=== PATIENT | male | born 1945 | race Caucasian/White ===

== ENCOUNTER 2017-12-22 12:35 | Inpatient (IN) ==
[2017-12-22] MEDS ORDERED: 0.9 % Sodium Chloride 1,000 ML IVC ONE ×3 (12:57→16:10)
[2017-12-22 13:36] LABS: Basophils # 0.1 K/mcL (0.0-0.2); Basophils % 0.8 %; Eosinophils # 0.2 K/mcL (0.0-0.6); Eosinophils % 2.9 %; Hematocrit 43.8 % (37.5-50.1); Hemoglobin 14.8 g/dL (12.9-16.9); Immature Granulocytes % 0.9 % (0-4); Lymphocytes # 1.3 K/mcL (0.6-4.6); Lymphocytes % 19.5 %; Mean Corpuscular HGB Conc 33.8 g/dL (31.6-35.5); Mean Corpuscular Hemoglobin 29.7 pg (28.0-33.3); Mean Platelet Volume 12.5 fL (9.4-12.4); Monocytes # 0.5 K/mcL (0.0-1.3); Monocytes % 7.7 %; Neutrophils # 4.4 K/mcL (1.6-8.9); Platelet Count 139 K/mcL (140-400); Red Blood Count 4.98 M/mcL (4.19-5.50); Red Cell Distribution Width 13.9 % (11.5-14.5); Segmented Neutrophils % 68.2 %
[2017-12-22 13:44] LABS: INR 1.1; Prothrombin Time 12.7 Seconds (9.4-12.1)
[2017-12-22 13:57] LABS: BUN/Creatinine Ratio 15 (6-26); Blood Urea Nitrogen 51 mg/dL (8-23); Calcium 9.6 mg/dL (8.6-10.3); Carbon Dioxide 27 mEq/L (23-29); Chloride 94 mEq/L (98-107); Glucose 175 mg/dL (70-105); Osmolality,Calculated 294 (280-300); Potassium 4.1 mEq/L (3.5-5.1); Sodium 133 mEq/L (136-145); Troponin I < 0.03 ng/mL (< 0.04); eGFR For African Americans 22 (> 60); eGFR For Non-African Americans 18 (> 60)
[2017-12-22 13:59] LABS: Bilirubin,Urine Small (Negative); Blood,Urine Negative (Negative); Clarity,Urine Cloudy (Clear); Color,Urine Dark Yellow (Yellow); Glucose,Urine (UA) >=1000 mg/dL (Normal); Ketones,Urine Negative (Negative); Leukocyte Esterase,Urine Small (Negative); Nitrite,Urine Negative (Negative); PH,Urine 5.5 pH Units (5.0-8.0); Protein,Urine 30 mg/dL (Neg-Trace); Specific Gravity,Urine 1.024 (1.010-1.025); Urobilinogen,Urine Normal (Normal)
[2017-12-22 14:01] LABS: Bacteria,Urine None Seen per hpf (None-Few); Hyaline Casts,Urine None Seen per lpf (None-Few); Squamous Epithelial Cell,Urine Many per lpf (None-Few); WBC,Urine 15-30 per hpf (0-3)
[2017-12-22 14:19] LABS: RBC,Urine 0-3 per hpf (0-3)
--- NOTE | 2017-12-22 14:58 | Emergency Department Note ---
Disposition Clinical Impression: Acute kidney injury Foot ulcer Qualifiers: Laterality: left Non-pressure ulcer stage: unspecified non-pressure ulcer stage Qualified Code(s): L97.529 - Non-pressure chronic ulcer of other part of left foot with unspecified severity Hypotension Qualifiers: Hypotension type: unspecified hypotension type Qualified Code(s): I95.9 - Hypotension, unspecified Atrial fibrillation Qualifiers: Atrial fibrillation type: unspecified Qualified Code(s): I48.91 - Unspecified atrial fibrillation Disposition: Admitted As Inpatient Condition: Good Referrals: Ariel Munson DO [Primary Care Provider] - Forms: ED Satisfaction Letter General Adult HPI - General Chief complaint: ED Syncope Stated complaint: hypotension Time Seen by Provider: 12/22/17 12:56 Source: patient Limitations: no limitations Nursing Notes Reviewed: Yes Vital Signs Reviewed: Yes - History of Present Illness HPI Narrative: Patient presents today for evaluation of multiple syncopal episodes. Patient has had feelings of dizziness and lightheadedness over the last week has been worse over the last 3 days. He is very hard of hearing and difficult to get information from. He denies shortness of breath or chest pain. He states that he is being seen private grind operator for a foot wound that has been nonhealing in nature. The family is at bedside stating that they have noticed low blood pressure as low as 60 at home and that he has been unwilling to get out of bed secondary to dizziness. Patient is "stubborn" per family and they have not been able to get him to the hospital until today he had worsening symptoms. Denies fevers or chills. Pain Scale: 0 - Related Data Home Medications Medication Instructions Recorded Confirmed Aspirin 11/15/17 Atenolol 11/15/17 Cyclobenzaprine 11/15/17 Gabapentin 11/15/17 Glimepiride 11/15/17 Hydrocodon-Acetamin 7.5-325/15 11/15/17 Lisinopril-HCTZ 20-12.5 11/15/17 Lovastatin 11/15/17 11/15/17 Previous Rx's Medication Instructions Recorded Mupirocin [Bactroban Oint] 22 gm TP BID #1 tube 08/13/17 Albuterol Sulfate [Albuterol 2 puff IH Q4HR PRN #1 hfa.[email or web address].[email or web address] 08/15/17 Inhaler] Allergies Allergy/AdvReac Type Severity Reaction Status Date / Time Iodinated Contrast- Oral and Allergy Dizziness Verified 08/15/17 09:18 IV Dye Review of Systems: CONSTITUTIONAL: No weight loss, fever, chills, weakness or fatigue. HEENT: Eyes: No visual changes. Ears, Nose, Throat: No hearing loss, difficulty talking or unable to swallow. SKIN: No rash or itching. CARDIOVASCULAR: No chest pain, chest pressure or chest discomfort. No palpitations or edema. RESPIRATORY: No shortness of breath, cough or sputum. GASTROINTESTINAL: No anorexia, nausea, vomiting or diarrhea. No abdominal pain or blood. GENITOURINARY: No burning on urination or hematuria. NEUROLOGICAL: Dizziness and multiple episodes of near syncope. No headache, paralysis, ataxia, numbness or tingling in the extremities. No change in bowel or bladder control. MUSCULOSKELETAL: Chronic back pain Past Medical History - Past Medical History Medical history: Reports: cancer, diabetes, myocardial infarction, peripheral artery disease Psychiatric history: Reports: no psych history - Social History Smoking Status: Current every day smoker Smokeless Tobacco Status: No Alcohol use: Reports: none Drug use: Reports: none Physical Exam General: Hard of hearing but in no acute distress despite persistent low blood pressure W Head: Normocephalic Atraumatic Eyes: PERRL, EOMI ENT: Airway patent, no stridor Neck: supple, Chest: Lungs clear to auscultation bilateral Cardiac: Regular rate and rhythm, no murmurs, rubs or gallops Abdomen: soft, nontender, nondistended; no guarding, rebound, or tenderness to percussion Musculoskeletal: Calves symmetric, nontender, no palpable cord; no significant swelling Skin: Wounds to the left lower extremity including the dorsum as well as posterior aspect of the heel chronic and nonhealing Neuro: Alert and Oriented to person, place, and time; No focal deficit, - General Limitations: no limitations General appearance: alert, in no apparent distress Course Course Narrative: Patient was reevaluated multiple times throughout the hospital stay. The patient received 2 L of fluids and continued to remain hypotensive. Bedside echocardiogram was performed secondary to concern for persistent hypotension and chest x-ray concerning for CHF. Chest x-ray evaluated. No effusion. Patient clinically not having signs of congestive heart failure. The patient will continue to receive fluids. Central line discussed with patient and family. BMP as well as further labs will be obtained. We will discuss with hospitalist regards to further management. - Consultations Consultation #1: Case was discussed with the hospitalist. Recommend CPK to check for rhabdomyolysis as he has been nonmobile for 2 days secondary to low blood pressure. Also concern for infection as nonhealing food wound. Patient accepted for admission. Vital Signs Temperature 97.4 F L 12/22/17 12:40 Pulse Rate 84 12/22/17 12:40 Respiratory Rate 18 12/22/17 12:40 Blood Pressure 69/50 12/22/17 12:40 O2 Sat by Pulse Oximetry 96 12/22/17 12:40 Temperature 97.4 F L 12/22/17 13:06 Pulse Rate 78 12/22/17 15:56 Respiratory Rate 18 12/22/17 15:56 Blood Pressure 106/67 12/22/17 15:56 O2 Sat by Pulse Oximetry 100 12/22/17 15:56 Oxygen Delivery Oxygen Delivery Room Air Medical Decision Making - Medical Records Medical records reviewed: Yes I reviewed the patient's medical records. - Lab Data Lab results reviewed: Yes I reviewed the patient's lab results. Result diagrams: 12/22/17 12:44 12/22/17 12:44 Lab Results 12/22/17 12/22/17 12/22/17 Range/Units 12:44 12:44 12:56 WBC 6.5 (4.3-11.1) K/mcL RBC 4.98 (4.19-5.50) M/mcL Hgb 14.8 (12.9-16.9) g/dL Hct 43.8 (37.5-50.1) % MCV 88.0 (83.0-100.0) fL MCH 29.7 (28.0-33.3) pg MCHC 33.8 (31.6-35.5) g/dL RDW 13.9 (11.5-14.5) % Plt Count 139 L (140-400) K/mcL MPV 12.5 H (9.4-12.4) fL Immature Gran % 0.9 (0-4) % Seg Neutrophils % 68.2 % Lymphocytes % 19.5 % Monocytes % 7.7 % Eosinophils % 2.9 % Basophils % 0.8 % Neutrophils # 4.4 (1.6-8.9) K/mcL Lymphocytes # 1.3 (0.6-4.6) K/mcL Monocytes # 0.5 (0.0-1.3) K/mcL Eosinophils # 0.2 (0.0-0.6) K/mcL Basophils # 0.1 (0.0-0.2) K/mcL PT 12.7 H (9.4-12.1) Seconds INR 1.1 Sodium 133 L (136-145) mEq/L Potassium 4.1 (3.5-5.1) mEq/L Chloride 94 L (98-107) mEq/L Carbon Dioxide 27 (23-29) mEq/L BUN 51 H (8-23) mg/dL Creatinine 3.38 H (0.70-1.30) mg/dL Est GFR ( Amer) 22 L (> 60) Est GFR (Non-Af Amer) 18 L (> 60) BUN/Creatinine Ratio 15 (6-26) Glucose 175 H (70-105) mg/dL Calculated Osmolality 294 (280-300) Calcium 9.6 (8.6-10.3) mg/dL Troponin I < 0.03 (< 0.04) ng/mL B-Natriuretic Peptide (Less than 100) pg/mL Urine Color (Yellow) Urine Clarity (Clear) Urine pH (5.0-8.0) pH Units Ur Specific [place] (1.010-1.025) Urine Protein (Neg-Trace) mg/dL Urine Glucose (UA) (Normal) mg/dL Urine Ketones (Negative) mg/dL Urine Blood (Negative) Urine Nitrite (Negative) Urine Bilirubin (Negative) Urine Urobilinogen (Normal) mg/dL Ur Leukocyte Esterase (Negative) Urine Microscopic RBC (0-3) per hpf Urine Microscopic WBC (0-3) per hpf Ur Squamous Epith Cells (None-Few) per lpf Urine Bacteria (None-Few) per hpf Hyaline Casts (None-Few) per lpf Ur Culture Indicated? (NO) Blood Type Antibody Screen 12/22/17 12/22/17 12/22/17 Range/Units 13:02 13:50 15:18 WBC (4.3-11.1) K/mcL RBC (4.19-5.50) M/mcL Hgb (12.9-16.9) g/dL Hct (37.5-50.1) % MCV (83.0-100.0) fL MCH (28.0-33.3) pg MCHC (31.6-35.5) g/dL RDW (11.5-14.5) % Plt Count (140-400) K/mcL MPV (9.4-12.4) fL Immature Gran % (0-4) % Seg Neutrophils % % Lymphocytes % % Monocytes % % Eosinophils % % Basophils % % Neutrophils # (1.6-8.9) K/mcL Lymphocytes # (0.6-4.6) K/mcL Monocytes # (0.0-1.3) K/mcL Eosinophils # (0.0-0.6) K/mcL Basophils # (0.0-0.2) K/mcL PT (9.4-12.1) Seconds INR Sodium (136-145) mEq/L Potassium (3.5-5.1) mEq/L Chloride (98-107) mEq/L Carbon Dioxide (23-29) mEq/L BUN (8-23) mg/dL Creatinine (0.70-1.30) mg/dL Est GFR ( Amer) (> 60) Est GFR (Non-Af Amer) (> 60) BUN/Creatinine Ratio (6-26) Glucose (70-105) mg/dL Calculated Osmolality (280-300) Calcium (8.6-10.3) mg/dL Troponin I (< 0.04) ng/mL B-Natriuretic Peptide 82 (Less than 100) pg/mL Urine Color Dark Yellow (Yellow) Urine Clarity Cloudy A (Clear) Urine pH 5.5 (5.0-8.0) pH Units Ur Specific [place] 1.024 (1.010-1.025) Urine Protein 30 H (Neg-Trace) mg/dL Urine Glucose (UA) >=1000 H (Normal) mg/dL Urine Ketones Negative (Negative) mg/dL Urine Blood Negative (Negative) Urine Nitrite Negative (Negative) Urine Bilirubin Small H (Negative) Urine Urobilinogen Normal (Normal) mg/dL Ur Leukocyte Esterase Small H (Negative) Urine Microscopic RBC 0-3 (0-3) per hpf Urine Microscopic WBC 15-30 H (0-3) per hpf Ur Squamous Epith Cells Many H (None-Few) per lpf Urine Bacteria None Seen (None-Few) per hpf Hyaline Casts None Seen (None-Few) per lpf Ur Culture Indicated? NO. A (NO) Blood Type AB POSITIVE Antibody Screen NEGATIVE - Radiology Data Radiology results reviewed: Yes I reviewed the patient's radiology results. - EKG Data EKG #1 EKG attestation: Yes I reviewed and interpreted this EKG. EKG results narrative: EKG shows atrial fibrillation with ventricular rate of 80. QRS 102. QTC 403. No significant ST elevations or depressions.
[2017-12-22] MEDS ORDERED: Piperacillin/Tazobactam 3.375 GM in 0.9 % Sodium Chloride Mini Bag 100 ML IVPB ONE (16:09)
--- NOTE | 2017-12-22 19:54 | Internal Med History&Physical ---
Date of Encounter: 12/22/17 Time of Encounter: 19:50 Internal Medicine - H&P: HPI Chief complaint: Syncope Admitted From: Home History of present illness: Mr. Ayala is a 72 year old male with a past medical history of chronic kidney disease stage III, diabetes mellitus type 2, CAD, psoriasis, and peripheral artery disease who presented secondary to syncopal episodes. Patient reports lightheadedness for several weeks and decreased appetite. Family reports patient has not been drinking much fluids and in his systolic blood pressure has been on low 60s at home. He usually passes out shortly after standing per family. Patient reports taking lisinopril HCTZ as well as ibuprofen for non- healing diabetic foot ulcer. Family reports ulcer was the size of the silver dollar and now has decreased the size of a pencil eraser. Of note, EKG revealed new onset atrial fibrillation patient currently takes one baby aspirin daily. He denies associated fever, chills, chest pain, shortness of breath, abdominal pain, nausea, vomiting, diarrhea, constipation, dysuria, urinary frequency, urinary urgency, or recent illnesses. Past Med Surg Social Fam HX - Past Medical History Medical history: cancer, diabetes, myocardial infarction, peripheral artery disease Additional medical history: prostate 20 years ago Psychiatric history: no psych history - Past Surgical History Surgical History: other (Ears) Additional surgical history: 3 stents placed - Social History Smoking Status: Current every day smoker Packs per day: 0.5 Smokeless Tobacco Status: No Alcohol use: none Drug use: none Current living situation: Home - Family History Mother Hx Family Cardiac Disorders: Yes (CAD, CABG) Hx Family Endocrine Disorder: Yes (DM) Father Hx Family Cardiac Disorders: Yes ([place]) Internal Medicine - H&P: Meds Aspirin [Lo-Dose Aspirin EC] 81 mg PO DAILY 12/22/17 [History] Atenolol [Tenormin] 50 mg PO DAILY 12/22/17 [History] Gabapentin [Neurontin] 600 mg PO TID 12/22/17 [History] Glimepiride [Amaryl] 2 mg PO DAILY 12/22/17 [History] HYDROcodone/Acet 7.5/325 mg [[place] 7.5-325 mg] 1 tab PO TID PRN 12/22/17 [ History] Insulin Lispro Protamin/Lispro [Humalog Mix 75-25 Kwikpen] 70 unit SQ BID [History] Lisinopril-HCTZ 20-12.5 [Prinzide 20-12.5] 1 tab PO DAILY 12/22/17 [History] Lovastatin 40 mg PO DAILY 12/22/17 [History] Meloxicam [Mobic] 7.5 mg PO DAILY 12/22/17 [History] Pioglitazone HCl [Actos] 30 mg PO DAILY 12/22/17 [History] Terbinafine HCl 250 mg PO DAILY 12/22/17 [History] 3 Allergy/AdvReac Type Severity Reaction Status Date / Time Iodinated Contrast- Oral and Allergy Dizziness Verified 08/15/17 09:18 IV Dye All Systems PM: A 10-system review of systems was performed and is negative for pertinent findings except as documented above in the HPI. - Constitutional Constitutional: anorexia, fatigue, lethargy, malaise, weakness, no chills, no fever(s), no weight gain, no weight loss - EENT Eyes: no blurry vision, no diplopia Ears: decreased hearing (Chronic) - Cardiovascular Cardiovascular ROS IM: lightheadedness, syncope, no chest pain, no dyspnea on exertion, no palpitations - Respiratory Respiratory: no cough, no dyspnea on exertion, no wheezing, no chest congestion - Gastrointestinal Gastrointestinal: no abdominal pain, no constipation, no diarrhea, no loose stools, no nausea, no vomiting - Genitourinary Genitourinary ROS male: no dysuria, no urinary frequency, no urinary urgency - Musculoskeletal Musculoskeletal ROS IM: back pain (Chronic), no numbness, no tingling - Integumentary Integumentary IM: rash (Chronic psoriasis), skin ulcer - Neurological Neurological ROS: dizziness, frequent falls, numbness (Peripheral neuropathy), weakness, no tingling - Psychiatric Psychiatric: no anxiety, no depression - Endocrine Endocrine IM: fatigue, no flushing, no polydipsia, no polyphagia, no polyuria - Hematologic/Lymphatic Hematologic/Lymphatic: no easy bleeding, no easy bruising - Allergic/Immunologic Allergic/Immunologic: no wheezing - Constitutional Vitals: Temp Pulse Resp BP Pulse Ox 97.9 F 97 18 127/76 98 12/22/17 19:00 12/22/17 19:00 12/22/17 19:00 12/22/17 19:00 12/22/17 19:00 General appearance: Present: cooperative, A&O X 3, pleasant, no acute distress, answers questions appropriately - Head Head exam: Present: atraumatic, normocephalic - Eye Eye exam: Present: EOMI, PERRL, conjuntiva pink, sclera anicteric Pupils: Present: PERRL - ENT ENT exam: Present: mucous membranes dry, normal oropharynx - Neck Neck exam general surgery: Present: supple, trachea midline. Absent: lymphadenopathy - Respiratory Respiratory exam: Present: CTAB. Absent: accessory muscle use, rales, rhonchi, wheezes - Cardiovascular Cardiovascular exam: Present: irregular rhythm, +S1, +S2. Absent: diastolic murmur, gallop, rubs, systolic murmur - GI/Abdominal GI/Abdominal exam: Present: normal bowel sounds, soft, no peritoneal signs. Absent: distended, guarding, tenderness - Extremities Exam Extremities exam: Present: warm, radial pulses palpable and symmetrical. Absent : calf tenderness, cyanotic, pedal edema - Back Exam Back exam: Present: normal inspection. Absent: paraspinal tenderness, tenderness - Neurological Exam Neurological exam: Present: CN II-XII intact, oriented X3, no focal deficits. Absent: pronater drift, facial droop, speech deficit - Psychiatric Psychiatric exam: Present: normal affect, normal mood - Skin Skin exam: Present: dry (Increased skin turgor), normal color, rash (Diffuse psoriasis), warm. Absent: intact (Half centimeter deep ulcer left heel with minimal purulent drainage, no surrounding erythema or proximal streaking) Internal Med - H&P Results - Labs CBC & Chem 7: 12/22/17 12:44 12/22/17 12:44 - Pulse Oximetry Interpretation Digit-Finger O2 Sat by Pulse Oximetry: 98 (On room air) - EKG Data -: EKG Interpreted by Myself (Atrial fibrillation, rate 80) - Impressions ITS Impressions Chest X-Ray 12/22/17 12:57 IMPRESSION: Findings suggest congestive heart failure D/ / Benson Montilla MD / Benson Montilla MD Interpreting Provider: Benson Montilla MD - Assessment and plan (1) Acute kidney injury Current Visit: Yes Status: Acute Assessment and plan: Prerenal RITA on CKD stage 3 in the setting of sepsis, ANGUS inhibitor, and diuretic use Hold home ANGUS inhibitor and HCTZ Patient received 4 L normal saline in the ED Continue gentle hydration Strict I's and O's Repeat CXR in a.m. to eval for pulmonary edema Consider nephrology consult if renal function is not improve (2) Sepsis Current Visit: Yes Status: Acute Assessment and plan: Patient met SIRS criteria with tachycardia heart rate 97, and respiratory rate 22, and left heel ulcer as likely source of infection Patient given 4 L IVF sepsis bolus and ED Blood cultures pending Left foot ulcer culture pending Chest x-ray findings suggest congestive heart failure, repeat chest x-ray in AM due to significant amount of IV fluids Lactic acid pending Continue empiric Zosyn and Vanc Descalating antibiotics based culture results Qualifiers: Sepsis type: sepsis due to unspecified organism Qualified Code(s): A41.9 - Sepsis, unspecified organism (3) Heel ulcer due to DM Current Visit: Yes Status: Chronic Assessment and plan: Patient with diabetes and peripheral vascular disease GASTON pending Wound cultures pending Continue Santyl ointment and wound care Patient follows up podiatry Podiatry consulted Qualifiers: Diabetes mellitus type: type 2 Laterality: left Non-pressure ulcer stage : with fat layer exposed Qualified Code(s): E11.621 - Type 2 diabetes mellitus with foot ulcer; L97.422 - 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 layer exposed (4) Syncope Current Visit: Yes Status: Acute Assessment and plan: Likely vasovagal syncope in the setting of dehydration Carotid ultrasound pending Echo pending Cardiology consulted Qualifiers: Syncope type: vasovagal syncope Qualified Code(s): R55 - Syncope and collapse (5) Diabetes mellitus with peripheral vascular disease Current Visit: Yes Status: Chronic Assessment and plan: Last A1c level 10.8 on 07/29/17 Continue basal and SSI Continue Accu-Cheks ACHS ADA diet Diabetic education (6) CKD (chronic kidney disease), stage III Current Visit: Yes Status: Chronic Assessment and plan: CKD stage III Consumer Safety Inspector is Dr. Jacobsen Avoid nephrotoxins (7) Atrial fibrillation Current Visit: Yes Status: Acute Assessment and plan: New-onset atrial fibrillation CHADS-VASc Score 4 HAS-BLED Score 4 Patient is currently on aspirin 81 mg daily Cardiology consulted secondary syncope and new onset A. fib, patient recommendations regarding need for anticoagulation Qualifiers: Atrial fibrillation type: persistent Qualified Code(s): I48.1 - Persistent atrial fibrillation (8) CAD (coronary artery disease) Current Visit: No Status: Chronic Assessment and plan: Patient with known history of CAD Trend serial troponins Continue home aspirin Hold beta law in the setting of hypotension Qualifiers: Coronary Disease-Associated Artery/Lesion type: unspecified vessel or lesion type [place] vs. transplanted heart: [place] heart Associated angina: without angina Qualified Code(s): I25.10 - Atherosclerotic heart disease of [place] coronary artery without angina pectoris (9) HLD (hyperlipidemia) Current Visit: No Status: Chronic Assessment and plan: Continue home meds Qualifiers: Hyperlipidemia type: unspecified Qualified Code(s): E78.5 - Hyperlipidemia , unspecified (10) Peripheral vascular disease Current Visit: Yes Status: Chronic Assessment and plan: Patient with chronic peripheral vascular disease right lower extremity worse than left lower extremity Patient has been evaluated by vascular surgery in the past Repeat GASTON pending (11) Tobacco dependence Current Visit: No Status: Chronic Assessment and plan: Tobacco cessation discussed in the setting of peripheral vascular disease and heel ulcer (12) Chronic back pain Current Visit: No Status: Chronic Assessment and plan: Continue home meds Monitor for signs of opiate withdrawal Qualifiers: Back pain location: low back pain Back pain laterality: bilateral Sciatica presence: without sciatica Qualified Code(s): M54.5 - Low back pain; G89.29 - Other chronic pain (13) Hard of hearing Current Visit: Yes Status: Acute Assessment and plan: Continue monitoring Qualifiers: Hearing loss type: unspecified Laterality: unspecified laterality Qualified Code(s): H91.90 - Unspecified hearing loss, unspecified ear (14) Psoriasis Current Visit: No Status: Chronic Assessment and plan: Continue monitoring (15) DVT prophylaxis Current Visit: Yes Status: Acute Assessment and plan: Heparin subcutaneous TID - Time Spent With Patient Total time spent is greater than 50% in coordination of care (as documented) at patient's floor/unit and/or counseling patient: Sepsis Reassessment Note - Evaluation Sepsis Screen: No Definite Risk Current Stage of Sepsis: sepsis Possible Source of Sepsis: skin/soft tissue - Focused Exam Date of Encounter: 12/22/17 Time of Encounter: 21:10 Vital Signs: Vital Signs Temp Pulse Resp BP Pulse Ox 12/22/17 20:00 86 18 109/86 86 12/22/17 19:30 87 12/22/17 19:00 97.9 F 97 18 127/76 98 12/22/17 17:36 90 18 106/61 100 12/22/17 17:20 18 118/79 Respiratory Exam: Present: CTA bilaterally Cardiovascular Exam: Present: irregulary irregular Capillary Refill: > 2 seconds Peripheral Pulse Strength: 2+ slightly diminished Peripheral Pulse Location: Radial Skin Exam: pallor - Reassessment Comments Comments: poor skin turgor
[2017-12-22] MEDS ORDERED: Naloxone 0.4 MG/ML INJ IVP PRN (20:20)
[2017-12-22] MEDS ORDERED: Acetaminophen 325 MG TABLET PO PRN (20:20)
[2017-12-22] MEDS ORDERED: *HR* HYDROcodone/Acet 5/325 mg TABLET PO PRN (20:20)
[2017-12-22] MEDS ORDERED: 0.9 % Sodium Chloride 1,000 ML IVC SCH (20:30)
[2017-12-22] MEDS ORDERED: *HR* Dextrose 50 % in Water (Syg) 50 ML SYRINGE IVP PRN (20:33)
[2017-12-22] MEDS ORDERED: Dextrose Gel 15 GM/37.5 ML TUBE PO PRN ×2 (20:33)
[2017-12-22] MEDS ORDERED: D5% in Water 1,000 ML IVC PRN (20:33)
[2017-12-22] MEDS ORDERED: Insulin DETEMIR 100 UNIT/ML X5UNITS SQ SCH (21:00)
[2017-12-22] MEDS ORDERED: Insulin LISPRO 300 UNITS/3 ML VIAL SQ SCH (21:00)
[2017-12-22 21:35] LABS: Albumin 3.2 g/dL (3.5-5.7); Albumin/Globulin Ratio 1.1 (1.1-2.2); Bilirubin,Direct 0.9 mg/dL (0.0-0.2); Bilirubin,Indirect 0.5 mg/dL (0.0-1.2); Bilirubin,Total 1.4 mg/dL (0.3-1.0); Globulin 2.9 g/dL (2.4-3.5); Magnesium 1.9 mg/dL (1.6-2.6); Phosphorous 2.9 mg/dL (2.7-4.5); Total Protein 6.1 g/dL (6.4-8.9); Troponin I < 0.03 ng/mL (< 0.04)
[2017-12-22] MEDS ORDERED: *HR* Heparin 5,000 UNIT/ML VIAL SQ SCH (22:00)
[2017-12-22 22:09] LABS: Estimated Average Glucose 255 mg/dl; Hemoglobin A1C 10.5 %
[2017-12-22 22:22] LABS: Creatine Kinase 73 Units/L (30-223)
[2017-12-23] MEDS ORDERED: Piperacillin/Tazobactam 3.375 GM in 0.9 % Sodium Chloride Mini Bag 100 ML IVPB SCH
[2017-12-23 04:10] LABS: Mean Corpuscular Volume 88.5 fL (83.0-100.0); Mean Platelet Volume 11.9 fL (9.4-12.4); Monocytes % 8.1 %
[2017-12-23 04:12] LABS: Eosinophils # 0.2 K/mcL (0.0-0.6); Eosinophils % 4.9 %; Hematocrit 38.3 % (37.5-50.1); Immature Platelets 8.9 % (1.1-6.1); Lymphocytes # 1.1 K/mcL (0.6-4.6); Lymphocytes % 28.6 %; Mean Corpuscular HGB Conc 33.9 g/dL (31.6-35.5); Monocytes # 0.3 K/mcL (0.0-1.3); Red Blood Count 4.33 M/mcL (4.19-5.50); Red Cell Distribution Width 14.1 % (11.5-14.5); Segmented Neutrophils % 56.4 %
[2017-12-23 04:29] LABS: Albumin 3.1 g/dL (3.5-5.7); Bilirubin,Total 1.2 mg/dL (0.3-1.0); Calcium 8.3 mg/dL (8.6-10.3); Potassium 3.5 mEq/L (3.5-5.1); Total Protein 6.1 g/dL (6.4-8.9)
[2017-12-23] MEDS ORDERED: 0.9 % Sodium Chloride 250 ML IVC ONE ×2 (04:32→06:35)
[2017-12-23 04:52] LABS: Neutrophils # 2.1 K/mcL (1.6-8.9); Platelet Count 88 K/mcL (140-400)
[2017-12-23] MEDS ORDERED: *HR* HYDROcodone/Acet 5/325 mg TABLET PO PRN (06:35)
[2017-12-23] MEDS ORDERED: Naloxone 0.4 MG/ML INJ IVP PRN (06:35)
[2017-12-23] MEDS ORDERED: *HR* Dextrose 50 % in Water (Syg) 50 ML SYRINGE IVP PRN (06:35)
[2017-12-23] MEDS ORDERED: D5% in Water 1,000 ML IVC PRN (06:35)
[2017-12-23] MEDS ORDERED: Acetaminophen 325 MG TABLET PO PRN (06:35)
[2017-12-23] MEDS ORDERED: Dextrose Gel 15 GM/37.5 ML TUBE PO PRN ×2 (06:35)
[2017-12-23] MEDS ORDERED: 0.9 % Sodium Chloride 1,000 ML IVC SCH (06:35)
[2017-12-23] MEDS ORDERED: 0.9 % Sodium Chloride 1,000 ML ONE (06:44)
[2017-12-23] MEDS ORDERED: Insulin LISPRO 300 UNITS/3 ML VIAL SQ SCH (07:30)
[2017-12-23] MEDS: Insulin LISPRO 300 UNITS/3 ML VIAL SQ SCH ×4 (07:56→19:50)
[2017-12-23] MEDS: Piperacillin/Tazobactam 3.375 GM in 0.9 % Sodium Chloride Mini Bag 100 ML IVPB SCH ×2 (08:11→16:58)
[2017-12-23] MEDS: Aspirin Enteric Coated 81 MG Tablet PO SCH (08:11)
[2017-12-23] MEDS ORDERED: Aspirin Enteric Coated 81 MG Tablet PO SCH (09:00)
--- NOTE | 2017-12-23 10:31 | Cardiology Consult Note ---
Addendum entered and electronically signed by Kaiden Castelan CNP 12/23/17 14:12: PLT 88k this AM. On admission was 139k and has previously been near normal > 100. Repeat CBC. If platelets continue to downtrend, will recommend hematology evaluation for thrombocytopenia prior to starting anticoagulation. Resumed DVT prophylaxis that was originally ordered by primary team--Heparin 5000U SQ TID. Continue to monitor. Original Note: <Kaiden Castelan - Last Filed: 12/23/17 10:29> Date of Encounter: 12/23/17 Time of Encounter: 10:29 Assessment and Plan (1) Atrial fibrillation Current Visit: Yes Status: Acute Presumable new onset, rate controlled. 12 hr tele AVG HR 90. Was on Atenolol 50mg daily at home. No AV lauren blockers were started on admission due to hypotension. BP now improved. Start low dose Toprol XL 25mg daily. Hx of CAD and PCI, unclear when. No recent ischemic evaluation. Troponins negative x 3. Denies chest pain. Can consider stress test as outpt. Mag 1.9, K 3.5. Check TSH. TTE to evaluate structure and function. [id number] 3 (Age, DM, CAD). High CVA risk. Will recommend chronic AC--NOAC vs Coumadin, but currently complicated by communication issues--hearing aid battery and pt unable to carry on a conversation due to hearing loss. Qualifiers: Atrial fibrillation type: unspecified Qualified Code(s): I48.91 - Unspecified atrial fibrillation (2) Syncope Current Visit: Yes Status: Acute Syncope correlates with orthostatic hypotension and dehydration--per family most episodes were when going to a standing position. BP reportedly as low as 60s systolic. RITA secondary to dehydration and admits to lack of fluid intake. New onset A-Fib. Check TTE. Qualifiers: Syncope type: vasovagal syncope Qualified Code(s): R55 - Syncope and collapse (3) CAD (coronary artery disease) Current Visit: Yes Status: Chronic Reported hx of CAD and PCI, unclear when. No recent ischemic evaluation in our system. Pt denies chest pain. Troponins negative x 3. Continue ASA, Statin, start low dose BB. Qualifiers: Coronary Disease-Associated Artery/Lesion type: unspecified vessel or lesion type [place] vs. transplanted heart: [place] heart Associated angina: without angina Qualified Code(s): I25.10 - Atherosclerotic heart disease of [place] coronary artery without angina pectoris Discussion w patient/family: The assessment and plan as outlined above was discussed with the patient and/or family members who expressed understanding and agreement. All questions were answered. Thank you for involving us in the care of your patient. Please call with any questions. I will discuss all the above with Dr. Cary and make changes as necessary. History of Present Illness Consult date: 12/23/17 Requesting physician: Dallas Benson Consult reason: A-Fib, new onset Chief complaint: syncope History of present illness: Mr. Ayala is a 72 year old male a past medical history of chronic kidney disease stage III, diabetes mellitus type 2, CAD s/p PCI, psoriasis, and peripheral artery disease who presented secondary to syncopal episodes. Pt's hearing aid battery , communication very difficult at bedside. Most information obtained from H&P. Per H&P, patient reported lightheadedness for several weeks and decreased appetite. Family reported patient has not been drinking much fluids and in his systolic blood pressure has been on low 60s at home. He usually passes out shortly after standing per family. EKG revealed presumably new onset A-Fib in ED, HR 80. Cardiology consulted for further recs. He denies chest pain. Troponins negative x 3. RITA--creatinine 3.38 on admission , 2.09 today. Initial CXR suggested CHF, repeat CXR negative. No recent CV testing in records. Past Med Surg Social Fam HX - Past Medical History Medical history: cancer, coronary artery disease, diabetes, myocardial infarction, peripheral artery disease Additional medical history: prostate 20 years ago Psychiatric history: no psych history - Past Surgical History Surgical History: angioplasty/stent, other (Ears) Additional surgical history: 3 stents placed - Social History Smoking Status: Current every day smoker Packs per day: 0.5 Smokeless Tobacco Status: No Alcohol use: none Drug use: none - Family History Mother Hx Family Cardiac Disorders: Yes (CAD, CABG) Hx Family Endocrine Disorder: Yes (DM) Father Hx Family Cardiac Disorders: Yes ([place]) Medications and Allergies Aspirin [Lo-Dose Aspirin EC] 81 mg PO DAILY 12/22/17 [History] Atenolol [Tenormin] 50 mg PO DAILY 12/22/17 [History] Gabapentin [Neurontin] 600 mg PO TID 12/22/17 [History] Glimepiride [Amaryl] 2 mg PO DAILY 12/22/17 [History] HYDROcodone/Acet 7.5/325 mg [[place] 7.5-325 mg] 1 tab PO TID PRN 12/22/17 [ History] Insulin Lispro Protamin/Lispro [Humalog Mix 75-25 Kwikpen] 70 unit SQ BID [History] Lisinopril-HCTZ 20-12.5 [Prinzide 20-12.5] 1 tab PO DAILY 12/22/17 [History] Lovastatin 40 mg PO DAILY 12/22/17 [History] Meloxicam [Mobic] 7.5 mg PO DAILY 12/22/17 [History] Pioglitazone HCl [Actos] 30 mg PO DAILY 12/22/17 [History] Terbinafine HCl 250 mg PO DAILY 12/22/17 [History] 3 Allergy/AdvReac Type Severity Reaction Status Date / Time Iodinated Contrast- Oral and Allergy Dizziness Verified 08/15/17 09:18 IV Dye All Systems Review: The remainder of the systems were reviewed and are negative - Cardiovascular Cardiovascular: as per HPI, syncope Physical Examination Vital Signs, Last 4 Hours Temp Pulse Resp BP Pulse Ox 12/23/17 08:27 98 12/23/17 07:26 98.1 F 97 12 117/83 98 Vital Signs Temp Pulse Resp BP Pulse Ox 12/23/17 08:27 98 12/23/17 07:26 98.1 F 97 12 117/83 98 12/23/17 04:00 91 16 114/63 98 12/23/17 03:00 95 14 95/66 98 12/23/17 02:00 91 16 134/79 97 12/23/17 01:00 84 16 122/87 97 12/23/17 00:43 97.8 F 12/23/17 00:00 86 18 124/95 95 12/22/17 23:00 85 18 99/64 95 12/22/17 22:00 87 18 117/90 93 12/22/17 21:00 87 18 115/89 93 12/22/17 20:00 86 18 109/86 86 12/22/17 19:30 87 12/22/17 19:00 97.9 F 97 18 127/76 98 12/22/17 17:36 90 18 106/61 100 12/22/17 17:20 18 118/79 12/22/17 16:37 96 18 115/81 100 12/22/17 15:56 78 18 106/67 100 12/22/17 15:07 84 18 78/54 100 12/22/17 14:37 86 18 81/56 100 12/22/17 13:06 97.4 F L 84 18 69/50 96 12/22/17 12:40 97.4 F L 84 18 69/50 96 Intake and Output 12/22/17 12/23/17 12/23/17 23:59 07:59 15:59 Intake Total 1100 / 1100 0 / 0 Output Total 800 / 800 500 / 500 0 / 0 Balance 300 / 300 -500 / -500 0 / 0 Intake: IV Fluids 1100 / 1100 0.9 % Sodium Chloride 1,000 ML 1000 / 1000 @ 999 mls/hr IVC .Q1H1M ONE Rx# :[id number] Zosyn 3.375 GM In 0.9 % Sodium 100 / 100 Chloride (Mini-Bag +) 100 ML @ 25 mls/hr IVPB ONCE ONE Rx#: [id number] Oral 0 / 0 Output: Urine 800 / 800 500 / 500 0 / 0 Other: Weight 106.1 kg Blood Glucose* 195 88 Patient Weight 12/23/17 23:59 Weight 106.1 kg General: Conversant, No Apparent Distress HEENT: Atraumatic, Normocephaly, Mucus Membranes Moist Neck: No JVD, Normal carotid pulses Cardiac: Other (irregularly irregular rhythm) Lungs: Normal Breath Sounds, No Wheeze, Rales, Rhonchi Neuro: Alert and responsive, No focal deficits noted Abdomen: Soft, Non-Tender Skin: Other (LLE wound) Musculoskeletal: No Chest Wall Tenderness Extremities: No Clubbing, No Cyanosis, No Edema Results 12/23/17 03:24 12/23/17 03:24 Lab Results 12/22/17 12/22/17 12/23/17 21:01 21:01 03:24 WBC 3.8 L Hgb 13.0 D Hct 38.3 Plt Count 88 L Sodium Potassium Chloride Carbon Dioxide BUN Creatinine Glucose Calcium Magnesium 1.9 Total Bilirubin 1.4 H AST 141 H ALT 270 H Alkaline Phosphatase 145 H Troponin I < 0.03 12/23/17 12/23/17 03:24 03:24 WBC Hgb Hct Plt Count Sodium 135 L Potassium 3.5 Chloride 105 Carbon Dioxide 24 BUN 39 H Creatinine 2.09 H Glucose 83 Calcium 8.3 L Magnesium Total Bilirubin 1.2 H AST 123 H ALT 246 H Alkaline Phosphatase 143 H Troponin I < 0.03 Short CBC 12/23/17 12/22/17 Range/Units 03:24 12:44 WBC 3.8 L 6.5 (4.3-11.1) K/mcL Hgb 13.0 D 14.8 (12.9-16.9) g/dL Hct 38.3 43.8 (37.5-50.1) % Plt Count 88 L 139 L (140-400) K/mcL Neutrophils # 2.1 4.4 (1.6-8.9) K/mcL BMP 12/23/17 12/22/17 Range/Units 03:24 12:44 Sodium 135 L 133 L (136-145) mEq/L Potassium 3.5 4.1 (3.5-5.1) mEq/L Chloride 105 94 L (98-107) mEq/L Carbon Dioxide 24 27 (23-29) mEq/L BUN 39 H 51 H (8-23) mg/dL Creatinine 2.09 H 3.38 H (0.70-1.30) mg/dL Glucose 83 175 H (70-105) mg/dL Calcium 8.3 L 9.6 (8.6-10.3) mg/dL Cardiac Enzymes 12/23/17 12/22/17 12/22/17 Range/Units 03:24 21:01 12:44 Troponin I < 0.03 < 0.03 < 0.03 (< 0.04) ng/mL Liver Function 12/23/17 12/22/17 Range/Units 03:24 21:01 Total Bilirubin 1.2 H 1.4 H (0.3-1.0) mg/dL Direct Bilirubin 0.9 H (0.0-0.2) mg/dL AST 123 H 141 H (13-39) Units/L ALT 246 H 270 H (7-52) Units/L Alkaline Phosphatase 143 H 145 H (34-104) Units/L Albumin 3.1 L 3.2 L (3.5-5.7) g/dL Urine 12/22/17 Range/Units 13:50 Urine Color Dark Yellow (Yellow) Urine Clarity Cloudy A (Clear) Urine pH 5.5 (5.0-8.0) pH Units Ur Specific [place] 1.024 (1.010-1.025) Urine Protein 30 H (Neg-Trace) mg/dL Urine Glucose (UA) >=1000 H (Normal) mg/dL Impressions Chest X-Ray 12/22/17 12:57 IMPRESSION: Findings suggest congestive heart failure D/ / Benson Montilla MD / Benson Montilla MD Interpreting Provider: Benson Montilla MD Chest X-Ray 12/23/17 04:00 IMPRESSION: No acute disease. D/ / Noah Tan MD / Noah Tan MD Interpreting Provider: Noah Tan MD Active Medications Acetaminophen (Tylenol) 650 mg PO Q6HR PRN PRN Reason: Mild Pain/Fever Stop: 06/23/18 20:21 Hydrocodone Bitart/Acetaminophen ([place] 5-325 Mg) 1 tab PO Q6HR PRN PRN Reason: Moderate Pain Stop: 06/23/18 20:21 Aspirin (Aspirin Ec) 81 mg PO DAILY [facility] Stop: 06/24/18 09:01 Last Admin: 12/23/17 08:11 Dose: 81 mg Atorvastatin Calcium (Lipitor) 10 mg PO DAILY [facility] Stop: 06/23/18 20:46 Last Admin: 12/23/17 08:13 Dose: 10 mg Collagenase (Santyl) 1 appl TP DAILY [facility] PRN Reason: Protocol Stop: 06/23/18 20:31 Last Admin: 12/23/17 08:14 Dose: 1 appl Dextrose/Water (Dextrose 50% (Syg)) 25 ml IVP AD PRN PRN Reason: Hypoglycemia Stop: 06/23/18 20:34 Glucagon (Glucagen) 1 mg IM ONCE PRN PRN Reason: Hypoglycemia Stop: 06/23/18 20:34 Glucose (Gluctose) 15 gm PO ONCE PRN PRN Reason: Hypoglycemia Stop: 06/23/18 20:34 Glucose (Gluctose) 30 gm PO ONCE PRN PRN Reason: Hypoglycemia Stop: 06/23/18 20:34 Heparin Sodium (Porcine) (Heparin) 5,000 unit SQ Q8HCO [facility] Stop: 06/23/18 22:01 Dextrose (Dextrose 5%) 1,000 mls @ 100 mls/hr IVC .Q10H PRN PRN Reason: HYPOGLYCEMIA Stop: 06/23/18 20:34 Piperacillin Sod/Tazobactam (Sod 3.375 gm/ Sodium Chloride) 100 mls @ 25 mls/ hr IVPB Q8HR [facility] Stop: 06/24/18 00:01 Last Admin: 12/23/17 08:11 Dose: 25 mls/hr Insulin Detemir (Levemir) 15 unit SQ HS [facility] Stop: 06/23/18 21:01 Insulin Human Lispro (Humalog) 0 units SQ HS [facility] PRN Reason: Protocol Stop: 06/23/18 21:01 Insulin Human Lispro (Humalog) 0 units SQ TIDAC [facility] PRN Reason: Protocol Stop: 06/24/18 07:31 Last Admin: 12/23/17 07:56 Dose: Not Given Naloxone HCl (Narcan) 0.4 mg IVP Q2MIN PRN PRN Reason: SEE COMMENTS Stop: 06/23/18 20:21 Vancomycin HCl (Vancocin) 0 each IVPB RPHPROT PRN PRN Reason: PULSE DOSE Stop: 06/24/18 01:05 - Imaging and Cardiology Chest Xray: report reviewed - EKG Interpretation EKG results cardiology: personally reviewed (A-Fib with PVCs, HR 80), other (12 hr tele AVG HR 90, A-Fib.) Consult Discharge Plan - Plan Referrals: Ariel Munson, [Primary Care Provider] - <Frannie Cary - Last Filed: 12/24/17 14:28> Date of Encounter: 12/24/17 - Attending Attestation I have personally performed a face to face evaluation on this patient. I have reviewed and agree with the care plan. History and Exam by me shows: 72-year-old male presented with volume overload/congestive heart failure with shortness of breath. Patient drinks excessive amounts of fluids. Currently euvolemic on exam doing better with newly diagnosed atrial fibrillation. Did not appreciate his initial presentation with hypervolemia this was obtained from records. He has had recurrent falls in the past possibly making him high risk for future falls on anticoagulation. He does qualify for antibiotic laced reduce his risk of stroke with new onset atrial fibrillation. PTOT evaluation for risk of fall. The patient high risk for fall would not recommend for anticoagulations and continue antiplatelet therapy with the patient excepting higher risk for stroke. If patient is low risk for fall he would likely benefit from Coumadin due to his fluctuating renal function. With his history of thrombocyte cytopenia and platelets around thousand I do recommend a follow-up CBC in 3-5 days. Patient's platelets during his inpatient stay have not trended downwards and have been stable. Patient does have a history of PCI in the past. Would recommend outpatient stress test and follow-up with cardiology. Cardiac enzymes negative during his hospital stay the patient did not complain of chest pain Assessment and Plan Discussion w patient/family: The assessment and plan as outlined above was discussed with the patient and/or family members who expressed understanding and agreement. All questions were answered. Thank you for involving us in the care of your patient. Please call with any questions. History of Present Illness History of present illness: Mr. Ayala is a 72 year old male All Systems Review: The remainder of the systems were reviewed and are negative Physical Examination Vital Signs, Last 4 Hours Temp Pulse Resp BP Pulse Ox 12/24/17 12:58 97.9 F 98 16 148/93 97 Results 12/24/17 09:54 12/24/17 09:54 Lab Results 12/23/17 12/23/17 12/24/17 14:36 14:36 05:59 WBC 3.7 L Hgb 12.9 Hct 38.8 Plt Count 102 L INR 1.1 APTT 36.6 H Sodium Potassium Chloride Carbon Dioxide BUN Creatinine Glucose Calcium TSH 1.095 12/24/17 12/24/17 09:54 09:54 WBC 4.1 L Hgb 12.7 L Hct 37.4 L Plt Count 100 L INR APTT Sodium 136 Potassium 4.0 Chloride 100 Carbon Dioxide 27 BUN 27 H Creatinine 1.42 H Glucose 261 H Calcium 9.0 TSH
[2017-12-23] MEDS ORDERED: *HR* Heparin 5,000 UNIT/ML VIAL IVP PRN ×2 (13:41)
[2017-12-23] MEDS ORDERED: *HR* Heparin 5,000 UNIT/ML VIAL IVP ONE (13:41)
[2017-12-23] MEDS ORDERED: Heparin 25,000 UNIT/500 ML D5W 25,000 UNIT/500 ML BAG IVC SCH (13:45)
[2017-12-23] MEDS ORDERED: *HR* Heparin 5,000 UNIT/ML VIAL SQ SCH (14:00)
[2017-12-23 14:59] LABS: Basophils % 0.5 %; Eosinophils # 0.1 K/mcL (0.0-0.6); Eosinophils % 3.5 %; Hematocrit 38.8 % (37.5-50.1); Hemoglobin 12.9 g/dL (12.9-16.9); Immature Granulocytes % 1.1 % (0-4); Lymphocytes # 0.8 K/mcL (0.6-4.6); Lymphocytes % 21.6 %; Mean Corpuscular HGB Conc 33.2 g/dL (31.6-35.5); Mean Corpuscular Hemoglobin 29.3 pg (28.0-33.3); Mean Corpuscular Volume 88.2 fL (83.0-100.0); Mean Platelet Volume 11.8 fL (9.4-12.4); Monocytes # 0.3 K/mcL (0.0-1.3); Neutrophils # 2.5 K/mcL (1.6-8.9); Platelet Count 102 K/mcL (140-400); Red Cell Distribution Width 14.3 % (11.5-14.5); Segmented Neutrophils % 66.3 %
[2017-12-23 15:09] LABS: INR 1.1; Prothrombin Time 11.9 Seconds (9.4-12.1)
[2017-12-23] MEDS: Metoprolol XL (24 HR) Succ 25 MG TAB.ER.24H PO SCH (15:11)
[2017-12-23 15:12] LABS: Activated Partial Thrombo Time 36.6 Seconds (26.0-36.0)
--- NOTE | 2017-12-23 17:23 | Podiatry Consult Note ---
Date of Encounter: 12/23/17 Time of Encounter: 17:00 Assessment and Plan (1) Foot ulcer Current visit: Yes Status: Acute Ulceration to the posterior medial plantar aspect left calcaneus Pablo grade 2. Mixed etiology with vascular disease. WBC: 3.7 No evidence of bacterial infection. Plan: Continue wound care as ordered with Santyl ointment BID with 4x4 dry sterile gauze, kerlix and tape. Keep left heel off loaded. Follow up in wound care with Dr. Jay one week after discharge from the hospital. Recommend a follow up with Vascular, patient was scheduled to have an angiogram of BLE in October of [address] Snyder but was postponed until patient was evaluated by Nephrology. Qualifiers: Laterality: left Non-pressure ulcer stage: unspecified non-pressure ulcer stage Qualified Code(s): L97.529 - Non-pressure chronic ulcer of other part of left foot with unspecified severity (2) CKD (chronic kidney disease), stage III Current visit: Yes Status: Chronic (3) Diabetes mellitus with peripheral vascular disease Current visit: Yes Status: Chronic (4) Peripheral vascular disease Current visit: Yes Status: Chronic Patient was last seen by Dr. Snyder in October of 2017, ABIs from 10/04/17 showed RABI 0.68, LABI 1.08. Patient was scheduled for an angiogram with Dr. Snyder in October of 2017 but was postponed until evaluated by Nephrology. Recommend a follow up with Vascular. History of Present Illness HPI: Mr. Ayala is a 72 year old male admitted to [facility] for syncope. Patient has a medical history significant for chronic kidney disease stage III, diabetes mellitus type 2, CAD, psoriasis, and peripheral artery disease. Podiatry was consulted for an ulcer to the left heel. Patient is a patient of Dr. Jay'bart in the wound care center. Patient was last seen a month ago and had a bedside debridement. Patient was last seen by Dr. Snyder in October of 2017, ABIs from 10/04 showed RABI 0.68, LABI 1.08. Patient was scheduled for an angiogram with Dr. Snyder in October of 2017 but was postponed until evaluated by Nephrology. Patient denies any pain in his feet. Past Med Surg Social Fam HX - Past Medical History Medical history: cancer, coronary artery disease, diabetes, myocardial infarction, peripheral artery disease Additional medical history: prostate 20 years ago Psychiatric history: no psych history - Past Surgical History Surgical History: angioplasty/stent, other (Ears) Additional surgical history: 3 stents placed - Social History Smoking Status: Current every day smoker Packs per day: 0.5 Smokeless Tobacco Status: No Alcohol use: none Drug use: none - Family History Mother Hx Family Cardiac Disorders: Yes (CAD, CABG) Hx Family Endocrine Disorder: Yes (DM) Father Hx Family Cardiac Disorders: Yes ([place]) Medications and Allergies Aspirin [Lo-Dose Aspirin EC] 81 mg PO DAILY 12/22/17 [History] Atenolol [Tenormin] 50 mg PO DAILY 12/22/17 [History] Gabapentin [Neurontin] 600 mg PO TID 12/22/17 [History] Glimepiride [Amaryl] 2 mg PO DAILY 12/22/17 [History] HYDROcodone/Acet 7.5/325 mg [[place] 7.5-325 mg] 1 tab PO TID PRN 12/22/17 [ History] Insulin Lispro Protamin/Lispro [Humalog Mix 75-25 Kwikpen] 70 unit SQ BID [History] Lisinopril-HCTZ 20-12.5 [Prinzide 20-12.5] 1 tab PO DAILY 12/22/17 [History] Lovastatin 40 mg PO DAILY 12/22/17 [History] Meloxicam [Mobic] 7.5 mg PO DAILY 12/22/17 [History] Pioglitazone HCl [Actos] 30 mg PO DAILY 12/22/17 [History] Terbinafine HCl 250 mg PO DAILY 12/22/17 [History] 3 Allergy/AdvReac Type Severity Reaction Status Date / Time Iodinated Contrast- Oral and Allergy Dizziness Verified 08/15/17 09:18 IV Dye All Systems Reviewed: Denies pain, denies fever, denies chills Physical Exam - Constitutional Vitals: Temp Pulse Resp BP Pulse Ox 97.8 F 87 14 102/65 97 12/23/17 17:03 12/23/17 17:03 12/23/17 17:03 12/23/17 17:03 12/23/17 17:03 Exam: General appearance: alert awake oriented X 3. Calm and pleasant, no acute distress.. Vascular: Unable to palpate pedal pulses. No evidence of cyanosis, pallor or rubor, Edema graded at 1+/4, Skin Temperature cool to warm, No calf pain with manual compression. capillary refill time is immediate to digits. Neurologic: Sensation intact with light touch to foot. . Wound: Pablo grade 2 ulceration to the posterior medial plantar aspect left calcaneus measuring 0.7 cm in length x 0.5 cm in width x 0.7 cm in depth, no probe to bone, no fluctuance, no periwound erythema, no pus, no odor, no streaking, no cellulitis, no evidence of bacterial infection. Integument: dry red scaly lesions scattered to the dorsum of both feet. Results - Labs Result Diagrams: 12/23/17 14:36 12/23/17 03:24 Labs: Abnormal lab results WBC 3.7 K/mcL (4.3-11.1) L 12/23/17 14:36 Plt Count 102 K/mcL (140-400) L 12/23/17 14:36 Immature Plt Fraction 8.9 % (1.1-6.1) H 12/23/17 03:24 APTT 36.6 Seconds (26.0-36.0) H 12/23/17 14:36 Sodium 135 mEq/L (136-145) L 12/23/17 03:24 BUN 39 mg/dL (8-23) H 12/23/17 03:24 Creatinine 2.09 mg/dL (0.70-1.30) H 12/23/17 03:24 Est GFR ( Amer) 38 (> 60) L 12/23/17 03:24 Est GFR (Non-Af Amer) 31 (> 60) L 12/23/17 03:24 POC Glucose 195 mg/dL (70-99) H 12/22/17 21:29 Hemoglobin A1c 10.5 % (-5.6) H 12/22/17 21:01 Calcium 8.3 mg/dL (8.6-10.3) L 12/23/17 03:24 Total Bilirubin 1.2 mg/dL (0.3-1.0) H 12/23/17 03:24 Direct Bilirubin 0.9 mg/dL (0.0-0.2) H 07/08/18 21:01 AST 123 Units/L (13-39) H 12/23/17 03:24 ALT 246 Units/L (7-52) H 12/23/17 03:24 Alkaline Phosphatase 143 Units/L (34-104) H 12/23/17 03:24 Serum Total Protein 6.1 g/dL (6.4-8.9) L 12/23/17 03:24 Albumin 3.1 g/dL (3.5-5.7) L 12/23/17 03:24 Albumin/Globulin Ratio 1.0 (1.1-2.2) L 12/23/17 03:24 Urine Clarity Cloudy (Clear) A 12/22/17 13:50 Urine Protein 30 mg/dL (Neg-Trace) H 12/22/17 13:50 Urine Glucose (UA) >=1000 mg/dL (Normal) H 12/22/17 13:50 Urine Bilirubin Small (Negative) H 12/22/17 13:50 Ur Leukocyte Esterase Small (Negative) H 12/22/17 13:50 Urine Microscopic WBC 15-30 per hpf (0-3) H 12/22/17 13:50 Ur Squamous Epith Cells Many per lpf (None-Few) H 12/22/17 13:50 Ur Culture Indicated? NO. (NO) A 12/22/17 13:50 H & H 12/23/17 12/23/17 Range/Units 03:24 14:36 Hgb 13.0 D 12.9 (12.9-16.9) g/dL Hct 38.3 38.8 (37.5-50.1) % All other labs normal. Consult Discharge Plan - Plan Referrals: Ariel Munson, DO [Primary Care Provider] -
--- NOTE | 2017-12-23 18:47 | Internal Med Progress Note ---
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 layer exposed (2) Sepsis Current Visit: Yes Status: Acute Assessment and plan: Resolved; continue empiric Zosyn and Vanc Descalating antibiotics based culture results Qualifiers: Sepsis type: sepsis due to unspecified organism Qualified Code(s): A41.9 - Sepsis, unspecified organism (3) CKD (chronic kidney disease), stage III Current Visit: Yes Status: Chronic Assessment and plan: Patient with acute on chronic renal failure which is improving with IV fluids Continue to monitor (4) Atrial fibrillation Current Visit: Yes Status: Acute Assessment and plan: New-onset atrial fibrillation CHADS-VASc Score 4 HAS-BLED Score 4 Patient is currently on aspirin 81 mg daily Cardiology consulted secondary syncope and new onset A. fib, patient recommendations regarding need for anticoagulation Qualifiers: Atrial fibrillation type: unspecified Qualified Code(s): I48.91 - Unspecified atrial fibrillation (5) Diabetes mellitus with peripheral vascular disease Current Visit: Yes Status: Chronic Assessment and plan: Last A1c level 10.8 on 07/29/17 Continue basal and SSI (6) HLD (hyperlipidemia) Current Visit: No Status: Chronic Assessment and plan: Continue statin Qualifiers: Hyperlipidemia type: unspecified Qualified Code(s): E78.5 - Hyperlipidemia , unspecified (7) Syncope Current Visit: Yes Status: Acute Assessment and plan: Likely vasovagal syncope in the setting of dehydration Carotid ultrasound showed nonstenotic plaque bilaterally and echocardiogram pending Cardiology consulted and appreciate recommendations Qualifiers: Syncope type: vasovagal syncope Qualified Code(s): R55 - Syncope and collapse (8) CAD (coronary artery disease) Current Visit: Yes Status: Chronic Assessment and plan: Stable; continue home aspirin, statin and start a low-dose beta law per cardiology recommendations H Qualifiers: Coronary Disease-Associated Artery/Lesion type: unspecified vessel or lesion type [place] vs. transplanted heart: [place] heart Associated angina: without angina Qualified Code(s): I25.10 - Atherosclerotic heart disease of [place] coronary artery without angina pectoris (9) Peripheral vascular disease Current Visit: Yes Status: Chronic Assessment and plan: Patient with chronic peripheral vascular disease right lower extremity worse than left lower extremity Repeat GASTON pending (10) DVT prophylaxis Current Visit: Yes Status: Acute Assessment and plan: Heparin subcutaneous - Time Spent With Patient Total time spent is greater than 50% in coordination of care (as documented) at patient's floor/unit and/or counseling patient: - Subjective Interval history: Patient presented with hypotension/dehydration found to have acute renal failure as result in addition to elevated transaminases. Patient also found to have diabetic foot ulcer with suspected infection Patient reports a feeling better since IV fluids were started. - Constitutional Vitals: Temp Pulse Resp BP Pulse Ox 97.8 F 87 14 102/65 97 12/23/17 17:03 12/23/17 17:03 12/23/17 17:03 12/23/17 17:03 12/23/17 17:03 General appearance: Present: cooperative, A&O X 3, pleasant, no acute distress, answers questions appropriately - Respiratory Respiratory exam: Present: CTAB. Absent: accessory muscle use, rales, rhonchi, wheezes - Cardiovascular Cardiovascular exam: Present: RRR, +S1, +S2. Absent: diastolic murmur, gallop, rubs, systolic murmur Internal Medicine: Result - Labs CBC & Chem 7: 12/23/17 14:36 12/23/17 03:24 Labs: Short CBC 12/23/17 12/23/17 Range/Units 03:24 14:36 WBC 3.8 L 3.7 L (4.3-11.1) K/mcL Hgb 13.0 D 12.9 (12.9-16.9) g/dL Hct 38.3 38.8 (37.5-50.1) % Plt Count 88 L 102 L (140-400) K/mcL Neutrophils # 2.1 2.5 (1.6-8.9) K/mcL BMP 12/23/17 03:24 Sodium 135 L Potassium 3.5 Chloride 105 Carbon Dioxide 24 BUN 39 H Creatinine 2.09 H Glucose 83 Calcium 8.3 L Cardiac Enzymes 12/22/17 12/23/17 Range/Units 21:01 03:24 Troponin I < 0.03 < 0.03 (< 0.04) ng/mL Liver Function 12/22/17 12/23/17 Range/Units 21:01 03:24 Total Bilirubin 1.4 H 1.2 H (0.3-1.0) mg/dL Direct Bilirubin 0.9 H (0.0-0.2) mg/dL AST 141 H 123 H (13-39) Units/L ALT 270 H 246 H (7-52) Units/L Alkaline Phosphatase 145 H 143 H (34-104) Units/L Albumin 3.2 L 3.1 L (3.5-5.7) g/dL - ABG Interpretation ABG results: PT/INR, D-dimer PT 11.9 Seconds (9.4-12.1) 12/23/17 14:36 - Impressions Impressions Chest X-Ray 12/23/17 04:00 IMPRESSION: No acute disease. D/ / Noah Tan MD / Noah Tan MD Interpreting Provider: Noah Tan MD Consult Discharge Plan - Plan Referrals: Ariel Munson DO [Primary Care Provider] -
[2017-12-23] MEDS: Insulin DETEMIR 100 UNIT/ML X5UNITS SQ SCH (19:53)
[2017-12-23] MEDS: *HR* Heparin 5,000 UNIT/ML VIAL SQ SCH (22:19)
[2017-12-24] MEDS: Piperacillin/Tazobactam 3.375 GM in 0.9 % Sodium Chloride Mini Bag 100 ML IVPB SCH ×3 (00:35→16:28)
[2017-12-24] MEDS: *HR* Heparin 5,000 UNIT/ML VIAL SQ SCH ×3 (05:06→21:08)
[2017-12-24] MEDS ORDERED: Aminoglycoside Consult 1 EACH MC ONE (08:05)
[2017-12-24] MEDS: Insulin LISPRO 300 UNITS/3 ML VIAL SQ SCH ×4 (08:22→21:14)
[2017-12-24] MEDS: Aspirin Enteric Coated 81 MG Tablet PO SCH (08:43)
[2017-12-24] MEDS: Metoprolol XL (24 HR) Succ 25 MG TAB.ER.24H PO SCH (08:50)
[2017-12-24] MEDS ORDERED: Metoprolol XL (24 HR) Succ 25 MG TAB.ER.24H PO ONE (09:10)
[2017-12-24 10:17] LABS: Basophils % 0.5 %; Eosinophils # 0.1 K/mcL (0.0-0.6); Eosinophils % 3.4 %; Hematocrit 37.4 % (37.5-50.1); Hemoglobin 12.7 g/dL (12.9-16.9); Immature Granulocytes % 0.5 % (0-4); Lymphocytes # 0.8 K/mcL (0.6-4.6); Mean Corpuscular Volume 88.2 fL (83.0-100.0); Mean Platelet Volume 11.8 fL (9.4-12.4); Monocytes # 0.2 K/mcL (0.0-1.3); Monocytes % 5.9 %; Neutrophils # 2.9 K/mcL (1.6-8.9); Platelet Count 100 K/mcL (140-400); Red Blood Count 4.24 M/mcL (4.19-5.50); Red Cell Distribution Width 14.2 % (11.5-14.5); Segmented Neutrophils % 70.7 %
--- NOTE | 2017-12-24 14:18 | Event Note ---
Date of Encounter: 12/24/17 Time of Encounter: 14:15 - Cardiology Event Note TTE resulted--LVEF 50-55%. Normal LV chamber size, wall thickness and function. Indeterminate diastolic function. Atypical septal motion consistent with bundle branch block. Normal right ventricular structure and function. No evidence of pulmonary hypertension. No significant valvular dysfunction. A-Fib is rate controlled. 12 hr tele AVG HR 95, A-Fib. Increased Toprol XL this AM from 25mg to 50mg daily. BP tolerating. [id number] 3. PLT 80,000 yesterday, but since increased and are stable, 100,000 today. Pt reports recent falls/syncope. Discussed with Dr. Cary. He recommend PT/OT evaluation. If he is labelled high fall risk from PT/OT, then we will recommend ASA only 81mg daily. If he is not high risk for falls, will recommend Eliquis 5mg BID for anticoagulation, but pt will need to be aware he is increased bleeding risk with thrombocytopenia. Will await PT/OT evaluation. Continue SQ heparin for DVT prophylaxis for now.
--- NOTE | 2017-12-24 14:23 | Electrocardiograph Report ---
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
--- NOTE | 2017-12-24 18:30 | Internal Med Progress Note ---
Date of Encounter: 12/24/17 Time of Encounter: 14:00 - Assessment and plan (1) Syncope Current Visit: Yes Status: Acute Assessment and plan: likely due to dehydration and new onset atrial fibrillation; CT head no acute stroke; B/L carotid Doppler showed no significant stenosis; Echo shows preserved EF, indeterminate diastolic function; continue Telemetry monitoring; Qualifiers: Syncope type: vasovagal syncope Qualified Code(s): R55 - Syncope and collapse (2) Diabetes mellitus with peripheral vascular disease Current Visit: Yes Status: Chronic Assessment and plan: blood sugars elevated; increase basal insulin; continue Accucheck blood glucose monitoring with basal bolus insulin regimen; diabetic diet; hbA1C 10.5%; (3) Heel ulcer due to DM Current Visit: Yes Status: Chronic Assessment and plan: chronic left heel ulcer, follows with Podiatry as outpatient; Podiatry consult appreciated- no e/o- infection, current wound care; will continue IV Zosyn for now and d/c Vancomycin; Sepsis less likely; Qualifiers: Diabetes mellitus type: type 2 Laterality: left Non-pressure ulcer stage : with fat layer exposed Qualified Code(s): E11.621 - Type 2 diabetes mellitus with foot ulcer; L97.422 - 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 layer exposed (4) Atrial fibrillation Current Visit: Yes Status: Acute Assessment and plan: New onset; rate-controlled; Cardiology on board; changed beta law to Metoprolol; recommend anticoagulation, possibly with NOACs, after PT/OT evaluation due to h/o- multiple recent falls at home; Telemetry monitoring; Qualifiers: Atrial fibrillation type: paroxysmal Qualified Code(s): I48.0 - Paroxysmal atrial fibrillation (5) DVT prophylaxis Current Visit: Yes Status: Acute (6) CKD (chronic kidney disease), stage III Current Visit: Yes Status: Acute Assessment and plan: RITA on CKD-stage 3; likely prerenal azotemia, serum creatinine improved back to baseline with IV hydration; follows with Nephrology as outpatient; hold ACEI and diuretic for now; (7) Sepsis Current Visit: Yes Status: Ruled-out Assessment and plan: blood and wound cultures negative; no other source of infection; Qualifiers: Sepsis type: sepsis due to unspecified organism Qualified Code(s): A41.9 - Sepsis, unspecified organism (8) HLD (hyperlipidemia) Current Visit: Yes Status: Chronic Qualifiers: Hyperlipidemia type: unspecified Qualified Code(s): E78.5 - Hyperlipidemia , unspecified (9) CAD (coronary artery disease) Current Visit: Yes Status: Chronic Qualifiers: Coronary Disease-Associated Artery/Lesion type: [place] artery [place] vs. transplanted heart: [place] heart Associated angina: without angina Qualified Code(s): I25.10 - Atherosclerotic heart disease of [place] coronary artery without angina pectoris (10) Peripheral vascular disease Current Visit: Yes Status: Chronic - Time Spent With Patient Total time spent is greater than 50% in coordination of care (as documented) at patient's floor/unit and/or counseling patient: - Subjective Interval history: Reports feeling very well, wants to be discharged home; no chest pain, palpitations, shortness of breath, cough; plan of care d/w neighbour and sister at bedside; - Constitutional Vitals: Temp Pulse Resp BP Pulse Ox 98.4 F 92 18 156/83 98 12/24/17 16:06 12/24/17 16:36 12/24/17 16:06 12/24/17 16:06 12/24/17 16:06 General appearance: Present: cooperative, A&O X 3, answers questions appropriately - Respiratory Respiratory exam: Present: CTAB. Absent: accessory muscle use, rales, rhonchi, wheezes - Cardiovascular Cardiovascular exam: Present: irregular rhythm, +S1, +S2. Absent: diastolic murmur, gallop, rubs, systolic murmur - GI/Abdominal GI/Abdominal exam: Present: normal bowel sounds, soft, no peritoneal signs. Absent: distended, tenderness - Extremities Exam Extremities exam: Present: warm, radial pulses palpable and symmetrical. Absent : calf tenderness, cyanotic, pedal edema Additional comments: left foot ulcer in surgical dressing Internal Medicine: Result - Labs CBC & Chem 7: 12/24/17 09:54 12/24/17 09:54 Labs: Short CBC 12/24/17 Range/Units 09:54 WBC 4.1 L (4.3-11.1) K/mcL Hgb 12.7 L (12.9-16.9) g/dL Hct 37.4 L (37.5-50.1) % Plt Count 100 L (140-400) K/mcL Neutrophils # 2.9 (1.6-8.9) K/mcL BMP 12/24/17 09:54 Sodium 136 Potassium 4.0 Chloride 100 Carbon Dioxide 27 BUN 27 H Creatinine 1.42 H Glucose 261 H Calcium 9.0 - ABG Interpretation ABG results: PT/INR, D-dimer PT 11.9 Seconds (9.4-12.1) 12/23/17 14:36 - Impressions Impressions Echocardiogram 12/23/17 20:20 Impressions: LVEF 50-55%. Normal LV chamber size, wall thickness and function. Indeterminate diastolic function. Atypical septal motion consistent with bundle branch block. Normal right ventricular structure and function. No evidence of pulmonary hypertension. No significant valvular dysfunction. Left Ventricular Wall Motion: Rest Echo Findings All wall segments showed normal motion. Findings: Study Quality * Technically adequate exam. ECG Findings * Atrial fibrillation, bundle branch block. Left Ventricle * LVEF 50-55%. * Normal LV chamber size, wall thickness and function. * Indeterminate diastolic function. * Atypical septal motion consistent with bundle branch block. Right Ventricle * Normal right ventricular structure and function. Left Atrium * Moderately dilated left atrium. Right Atrium * Normal right atrial size. Aortic Valve * Aortic valve not well visualized. * No aortic regurgitation. * No aortic stenosis. Mitral Valve * Normal mitral valve structure and function. * No mitral regurgitation. * No mitral stenosis. Tricuspid Valve * Normal tricuspid valve structure and function. * Trace tricuspid regurgitation. * No evidence of pulmonary hypertension. Pulmonic Valve * Pulmonic valve is not well visualized. * No pulmonic regurgitation. Aorta * Normally sized aortic root. Pericardium * The pericardium appears normal. IVC * Normal IVC dimensions and inspiratory collapse. Pulmonary Artery * Normal visualized portions of the main pulmonary artery. Consult Discharge Plan - Plan Referrals: Ariel Munson, [Primary Care Provider] -
[2017-12-24] MEDS: Insulin DETEMIR 100 UNIT/ML X5UNITS SQ SCH (21:22)
[2017-12-25] MEDS: Piperacillin/Tazobactam 3.375 GM in 0.9 % Sodium Chloride Mini Bag 100 ML IVPB SCH ×2 (02:43→08:58)
[2017-12-25] MEDS: *HR* Heparin 5,000 UNIT/ML VIAL SQ SCH ×2 (05:08→13:02)
[2017-12-25 06:17] LABS: Basophils % 0.6 %; Eosinophils # 0.2 K/mcL (0.0-0.6); Hematocrit 36.1 % (37.5-50.1); Hemoglobin 12.3 g/dL (12.9-16.9); Immature Granulocytes % 0.8 % (0-4); Lymphocytes # 1.1 K/mcL (0.6-4.6); Mean Corpuscular HGB Conc 34.1 g/dL (31.6-35.5); Mean Corpuscular Hemoglobin 29.8 pg (28.0-33.3); Mean Corpuscular Volume 87.4 fL (83.0-100.0); Mean Platelet Volume 11.9 fL (9.4-12.4); Monocytes # 0.4 K/mcL (0.0-1.3); Monocytes % 7.9 %; Neutrophils # 3.4 K/mcL (1.6-8.9); Platelet Count 110 K/mcL (140-400); Red Blood Count 4.13 M/mcL (4.19-5.50); Segmented Neutrophils % 66.7 %
[2017-12-25 06:43] LABS: BUN/Creatinine Ratio 18 (6-26); Blood Urea Nitrogen 23 mg/dL (8-23); Calcium 9.1 mg/dL (8.6-10.3); Carbon Dioxide 26 mEq/L (23-29); Chloride 103 mEq/L (98-107); Glucose 121 mg/dL (70-105); Osmolality,Calculated 291 (280-300); Potassium 3.7 mEq/L (3.5-5.1); Sodium 138 mEq/L (136-145); eGFR For African Americans > 60 (> 60); eGFR For Non-African Americans 56 (> 60)
[2017-12-25] MEDS: Aspirin Enteric Coated 81 MG Tablet PO SCH (08:58)
[2017-12-25] MEDS: Insulin LISPRO 300 UNITS/3 ML VIAL SQ SCH ×2 (08:59→13:02)
[2017-12-25] MEDS ORDERED: Metoprolol XL (24 HR) Succ 25 MG TAB.ER.24H PO SCH ×2 (09:00→11:25)
[2017-12-25] MEDS ORDERED: Insulin DETEMIR 100 UNIT/ML X5UNITS SQ SCH (09:00)
[2017-12-25 11:05] VITALS: BP 151/129
--- NOTE | 2017-12-25 12:32 | Discharge Summary ---
- NOTES TO OUTPATIENT PROVIDER Notes to Outpatient Provider: Syncope, likely vasovagal; new onset atrial fibrillation, being discharged on Eliquis, needs Cardiology f/up; Orders not resulted at time of discharge: Pending orders 12/22/17 20:22 Culture,Blood [BC] Stat Date of Encounter: 12/25/17 Time of Encounter: 12:30 - Discharge Diagnosis (1) Syncope Priority: Primary Status: Acute Qualifiers: Syncope type: vasovagal syncope Qualified Code(s): R55 - Syncope and collapse (2) Diabetes mellitus with peripheral vascular disease Priority: Secondary Status: Chronic (3) Heel ulcer due to DM Priority: Secondary Status: Chronic Qualifiers: Diabetes mellitus type: type 2 Laterality: left Non-pressure ulcer stage : with fat layer exposed Qualified Code(s): E11.621 - Type 2 diabetes mellitus with foot ulcer; L97.422 - 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 layer exposed (4) Atrial fibrillation Priority: Primary Status: Acute Qualifiers: Atrial fibrillation type: paroxysmal Qualified Code(s): I48.0 - Paroxysmal atrial fibrillation (5) CKD (chronic kidney disease), stage III Priority: Secondary Status: Chronic (6) Sepsis Priority: Primary Status: Ruled-out Qualifiers: Sepsis type: sepsis due to unspecified organism Qualified Code(s): A41.9 - Sepsis, unspecified organism (7) HLD (hyperlipidemia) Priority: Secondary Status: Chronic Qualifiers: Hyperlipidemia type: unspecified Qualified Code(s): E78.5 - Hyperlipidemia , unspecified (8) CAD (coronary artery disease) Priority: Secondary Status: Chronic Qualifiers: Coronary Disease-Associated Artery/Lesion type: [place] artery [place] vs. transplanted heart: [place] heart Associated angina: without angina Qualified Code(s): I25.10 - Atherosclerotic heart disease of [place] coronary artery without angina pectoris (9) Peripheral vascular disease Priority: Secondary Status: Chronic Hospital course: Mr. Ayala is a 72 year old male with the above medical problems, admitted with syncope, likely vasovagal and due to hypotension. He was noted to be hypotensive which responded to IV hydration. He also had RITA on CKD and serum creatinine improved back to baseline with IV hydration. CT head no acute stroke; B/L carotid Doppler showed no significant stenosis; Echo shows preserved EF, indeterminate diastolic function; He also was noted to have new onset of atrial fibrillation; Cardiology was consulted, his home beta law of Atenolol was changed to Metoprolol, uptitrated for appropriate HR control. PT/OT evaluation showed patient had steady gait and not a high fall risk, and he is being started on anticoagulation with Eliquis, after explaining risks and benefits. He was initially given broad spectrum IV antibiotics but no source of infection was found and these were held. Chronic left heel ulcer was evaluated by PODIATRY and recommended to continue local wound care and no infection was noted. Blood and wound cultures were negative. Patient is medically stable for discharge. Discharge discussed with: patient, nurse, middleware consultant - Time Spent with Patient Total time spent providing and/or coordinating discharge services: Greater than 30 minutes (45 min) - Discharge Medications Prescriptions: Metoprolol XL (24 HR) Succ [Toprol Xl] 100 mg PO DAILY #30 tab.er.24h Home Medications: Aspirin [Lo-Dose Aspirin EC] 81 mg PO DAILY 12/22/17 [History] Gabapentin [Neurontin] 600 mg PO TID 12/22/17 [History] Glimepiride [Amaryl] 2 mg PO DAILY 12/22/17 [History] HYDROcodone/Acet 7.5/325 mg [[place] 7.5-325 mg] 1 tab PO TID PRN 12/22/17 [ History] Insulin Lispro Protamin/Lispro [Humalog Mix 75-25 Kwikpen] 70 unit SQ BID [History] Lisinopril-HCTZ 20-12.5 [Prinzide 20-12.5] 1 tab PO DAILY 12/22/17 [History] Lovastatin 40 mg PO DAILY 12/22/17 [History] Meloxicam [Mobic] 7.5 mg PO DAILY 12/22/17 [History] Pioglitazone HCl [Actos] 30 mg PO DAILY 12/22/17 [History] Terbinafine HCl 250 mg PO DAILY 12/22/17 [History] Metoprolol XL (24 HR) Succ [Toprol Xl] 100 mg PO DAILY #30 tab.er.24h 12/25/17 [ Rx] Allergies/Adverse Reactions: 3 Allergy/AdvReac Type Severity Reaction Status Date / Time Iodinated Contrast- Oral and Allergy Dizziness Verified 08/15/17 09:18 IV Dye Date of admission: 12/22/17 16:49 Primary care physician: Ariel Munson DO Consults: 12/22/17 19:03 Consult to Senior Stock Plan Administrator [CONS] Routine Reason for SW Consult: Possible outpatient needs 12/22/17 20:20 Consult to Cardiology [CONS] Routine Comment: Consulting Provider: Card[facility] Reason for Consult: Syncope, new onset A-fib, history of fall, eval need for anticoagulation Time Notified: 20:31 Call Completed: Yes 12/22/17 20:41 Consult to Podiatry [CONS] Routine Consulting Provider: [facility] Reason for Consult: Diabetic foot ulcer, peripheral vascular disease Time Notified: 20:42 Call Completed: Yes 12/22/17 20:45 Consult to Diabetes Education [CONS] Routine Comment: Reason for Consult: DM, ulcer, poor nutrition 12/24/17 11:05 Consult to Physical Therapy [CONS] Routine Comment: Evaluate, develop and implement POC Reason for Consult: evaluate for falls risk Does patient have active BEDREST order?: No Is patient medically & hemodynamically stable?: Yes Patient assessed for mobility or mobilized this visit?: No 12/24/17 11:06 Consult to Occupational Therapy [CONS] Routine Comment: Evaluate, develop and implement POC Reason for Consult: evaluate for falls risk Does patient have active BEDREST order?: No Is patient medically & hemodynamically stable?: Yes Patient assessed for mobility or mobilized this visit?: No Discharging clinician: Qi Dimas Anticipated date of discharge: 12/25/17 - Constitutional Vitals: Temp Pulse Resp BP Pulse Ox 97.8 F 110 18 151/129 98 12/25/17 11:01 12/25/17 11:01 12/25/17 11:01 12/25/17 11:01 12/25/17 11:01 General appearance: Present: cooperative, A&O X 3, answers questions appropriately - Cardiovascular Cardiovascular exam: Present: irregular rhythm, +S1, +S2. Absent: diastolic murmur, gallop, rubs, systolic murmur - Patient Status Disposition: Home, Self-Care Condition: Good Functional capacity at discharge: independent ambulation Overall status at discharge: patient is progressing back to baseline - Discharge Instructions Instructions: Atrial Fibrillation (DC) Follow Up With: Stiltner,Ariel D, DO [Primary Care Provider] - Additional Instructions: F/up with PCP in 1-2 weeks F/up with Cardiology in 2 weeks - Diet and Activity Activity: resume usual activities as tolerated Diet: diabetic diet, low fat, low cholesterol, low salt diet
[2017-12-25] MEDS ORDERED: Metoprolol XL (24 HR) Succ 50 MG TAB.ER.24H PO ONE (12:37)
--- NOTE | 2017-12-25 13:06 | Podiatry Progress Note ---
Date of Encounter: 12/25/17 Time of Encounter: 12:15 - Assessment and Plan (1) Foot ulcer Current Visit: Yes Status: Acute Ulceration to the posterior medial plantar aspect left calcaneus Pablo grade 2. Mixed etiology with vascular disease. WBC: 5.0 No evidence of bacterial infection. Plan: Continue wound care as ordered with Santyl ointment BID with 4x4 dry sterile gauze, kerlix and tape. Keep left heel off loaded. Follow up in wound care with Dr. Jay one week after discharge from the hospital. Recommend a follow up with Vascular, patient was scheduled to have an angiogram of BLE in October of [address] Snyder but was postponed until patient was evaluated by Nephrology. Qualifiers: Laterality: left Non-pressure ulcer stage: unspecified non-pressure ulcer stage Qualified Code(s): L97.529 - Non-pressure chronic ulcer of other part of left foot with unspecified severity (2) CKD (chronic kidney disease), stage III Current Visit: Yes Status: Chronic (3) Diabetes mellitus with peripheral vascular disease Current Visit: Yes Status: Chronic (4) Peripheral vascular disease Current Visit: Yes Status: Chronic Patient was last seen by Dr. Snyder in October of 2017, ABIs from 10/04/17 showed RABI 0.68, LABI 1.08. Patient was scheduled for an angiogram with Dr. Snyder in October of 2017 but was postponed until evaluated by Nephrology. Recommend a follow up with Vascular. Subjective Interval history: Patient is sitting up in bed eating lunch. Patient states he thinks he will be going home today. Patient denies any pain in his feet, no c/o fever, chills. Patient has a dressing dry and intact to the left heel. Patient states his family will change his dressing for him daily. Objective - Vital Signs Vital Signs: Vital Signs Temp Pulse Resp BP Pulse Ox 12/25/17 11:01 97.8 F 110 18 151/129 98 12/25/17 07:23 97.9 F 108 17 151/109 94 12/25/17 02:43 97.9 F 88 20 149/88 97 12/24/17 22:43 97.9 F 100 16 133/41 98 12/24/17 18:48 98.0 F 74 17 186/75 98 12/24/17 16:36 92 12/24/17 16:06 98.4 F 85 18 156/83 98 Intake and Output 12/24/17 12/25/17 12/25/17 23:59 07:59 15:59 Intake Total 320 / 320 100 / 100 720 / 720 Balance 320 / 320 100 / 100 720 / 720 Intake: IV Fluids 200 / 200 100 / 100 Zosyn 3.375 GM In 0.9 % Sodium 200 / 200 100 / 100 Chloride (Mini-Bag +) 100 ML @ 25 mls/hr IVPB Q8HR [facility] Rx#: [id number] Oral 120 / 120 720 / 720 Other: Meal Dinner Lunch Percent of Meal Consumed 75% 95% Weight 59.6 kg Blood Glucose* 206 131 212 Patient Weight 12/25/17 23:59 Weight 59.6 kg - Exam Exam: General appearance: alert awake oriented X 3. Calm and pleasant, no acute distress.. Vascular: Unable to palpate pedal pulses. No evidence of cyanosis, pallor or rubor, Edema graded at 1+/4, Skin Temperature cool to warm, No calf pain with manual compression. capillary refill time is immediate to digits. Neurologic: Sensation intact with light touch to foot. . Wound: Pablo grade 2 ulceration to the posterior medial plantar aspect left calcaneus measuring 0.7 cm in length x 0.5 cm in width x 0.7 cm in depth, no probe to bone, no fluctuance, no periwound erythema, no pus, no odor, no streaking, no cellulitis, no evidence of bacterial infection. Integument: dry red scaly lesions scattered to the dorsum of both feet. - Lab Result Diagrams: 12/25/17 05:44 12/25/17 05:44 Labs: Abnormal lab results RBC 4.13 M/mcL (4.19-5.50) L 12/25/17 05:44 Hgb 12.3 g/dL (12.9-16.9) L 12/25/17 05:44 Hct 36.1 % (37.5-50.1) L 12/25/17 05:44 Plt Count 110 K/mcL (140-400) L 12/25/17 05:44 Immature Plt Fraction 8.9 % (1.1-6.1) H 12/23/17 03:24 APTT 36.6 Seconds (26.0-36.0) H 12/23/17 14:36 Est GFR (Non-Af Amer) 56 (> 60) L 12/25/17 05:44 Glucose 121 mg/dL (70-105) H 12/25/17 05:44 POC Glucose 206 mg/dL (70-99) H 12/24/17 19:55 Hemoglobin A1c 10.5 % (-5.6) H 12/22/17 21:01 Total Bilirubin 1.2 mg/dL (0.3-1.0) H 12/23/17 03:24 Direct Bilirubin 0.9 mg/dL (0.0-0.2) H 12/22/17 21:01 AST 123 Units/L (13-39) H 12/23/17 03:24 ALT 246 Units/L (7-52) H 12/23/17 03:24 Alkaline Phosphatase 143 Units/L (34-104) H 12/23/17 03:24 Serum Total Protein 6.1 g/dL (6.4-8.9) L 12/23/17 03:24 Albumin 3.1 g/dL (3.5-5.7) L 12/23/17 03:24 Albumin/Globulin Ratio 1.0 (1.1-2.2) L 12/23/17 03:24 Urine Clarity Cloudy (Clear) A 12/22/17 13:50 Urine Protein 30 mg/dL (Neg-Trace) H 12/22/17 13:50 Urine Glucose (UA) >=1000 mg/dL (Normal) H 12/22/17 13:50 Urine Bilirubin Small (Negative) H 12/22/17 13:50 Ur Leukocyte Esterase Small (Negative) H 12/22/17 13:50 Urine Microscopic WBC 15-30 per hpf (0-3) H 12/22/17 13:50 Ur Squamous Epith Cells Many per lpf (None-Few) H 12/22/17 13:50 Ur Culture Indicated? NO. (NO) A 12/22/17 13:50 Microbiology, Last 48 Hours 12/22/17 22:00 Wound Culture - Final Left Foot No pathogens isolated. 12/23/17 14:36 Blood Culture - Preliminary Peripheral Venipuncture Culture is incubating and being continuously monitored for growth. Final report to follow. 12/23/17 14:36 Blood Culture - Preliminary Peripheral Venipuncture Culture is incubating and being continuously monitored for growth. Final report to follow. Consult Discharge Plan - Plan Additional Instructions: F/up with PCP in 1-2 weeks F/up with Cardiology in 2 weeks Referrals: Ariel Munson DO [Primary Care Provider] - Prescriptions: Metoprolol XL (24 HR) Succ [Toprol Xl] 100 mg PO DAILY #30 tab.er.24h
--- NOTE | 2017-12-25 13:07 | Event Note ---
Date of Encounter: 12/25/17 Time of Encounter: 13:04 - Cardiology Event Note Mildly tachycardic/hypertensive this AM. Agree with Toprol XL increase to 100mg daily. Evaluated by PT/OT, notes reviewed, does not seem to be a high falls risk and is noted to turn and ambulate without difficulty. PLT count stable, but still decreased, 110k today. Given he is not a high falls risk and stable PLT count, recommend AC--Eliquis 5mg BID. Mcdonald check $8.35/month. Increased bleeding risk given low PLT count, but pt is high CVA risk with [id number] 3. Cardiology signing off. Reconsult PRN. Will coordinate outpt follow-up in 2-3 weeks and consider outpt stress test at that time.
[2017-12-25] MEDS ORDERED: Apixaban 5 MG TABLET PO SCH (21:00)
== END 2017-12-25 14:38 | disposition home or self-care (01) | DRG 312 ==
LOC: EMEROO 12:35 → ICNU 16:49 → SUATTDRO 16:49 → ICNU 18:32 → 2SOUTHHOLD 12-23 06:25
PROVIDERS: ADMIT Internal Medicine Nephrology; ATTEND Internal Medicine

== ENCOUNTER 2018-04-10 18:20 | Observation (INO) ==
[2018-04-10] MEDS ORDERED: Piperacillin/Tazobactam 3.375 GM in Water for inj. (sterile) 20 ML 20 ML IVP ONE (18:37)
--- NOTE | 2018-04-10 18:42 | Emergency Department Note ---
Disposition Clinical Impression: CKD (chronic kidney disease), stage III, Elevated troponin Atrial fibrillation Qualifiers: Atrial fibrillation type: unspecified Qualified Code(s): I48.91 - Unspecified atrial fibrillation Foot ulcer, left Qualifiers: Non-pressure ulcer stage: unspecified non-pressure ulcer stage Qualified Code(s): L97.529 - Non-pressure chronic ulcer of other part of left foot with unspecified severity CHF (congestive heart failure) Qualifiers: Heart failure type: unspecified Heart failure chronicity: acute Qualified Code(s): I50.9 - Heart failure, unspecified Disposition: Admitted As Inpatient Condition: Fair Referrals: Ariel Munson DO [Primary Care Provider] - Forms: ED Satisfaction Letter, Work/School Release Time of Disposition: 20:39 General Adult HPI - General Chief complaint: ED General Medical Stated complaint: low O2, sent from family doctor Time Seen by Provider: 04/10/18 18:25 Source: patient, family Mode of arrival: EMS Limitations: no limitations Nursing Notes Reviewed: Yes Vital Signs Reviewed: Yes - History of Present Illness HPI Narrative: Patient presents to the ED from his doctor's office with the chief complaint of hypotension and hypoxia. Patient has a history of diabetes. He has developed an ulcer on his left foot that they are concerned it is infected. Patient has been having low blood pressure over the last several weeks. He has been seen and evaluated and rehydrated with some relief. They have not adjusted his blood pressure medication and he remains having low blood pressures. He is having frequent syncopal episodes. He saw his primary care doctor today who sent him over here because his sats were in the 70s. Patient denies any chest pain or shortness breath. States he does feel generally weak. No associated abdominal pain, nausea or vomiting. He does have peripheral neuropathy and does have a history of coronary artery disease. Pain Scale: 0 - Related Data Home Medications Medication Instructions Recorded Confirmed Aspirin [Lo-Dose Aspirin EC] 81 mg PO DAILY 12/22/17 12/22/17 Gabapentin [Neurontin] 600 mg PO TID 12/22/17 12/22/17 Glimepiride [Amaryl] 2 mg PO DAILY 12/22/17 12/22/17 HYDROcodone/Acet 7.5/325 mg [[place] 1 tab PO TID PRN 12/22/17 12/22/17 7.5-325 mg] Insulin Lispro Protamin/Lispro 70 unit SQ BID 12/22/17 12/22/17 [Humalog Mix 75-25 Kwikpen] Lisinopril-HCTZ 20-12.5 [Prinzide 1 tab PO DAILY 12/22/17 12/22/17 20-12.5] Lovastatin 40 mg PO DAILY 12/22/17 12/22/17 Pioglitazone HCl [Actos] 30 mg PO DAILY 12/22/17 12/22/17 Terbinafine HCl 250 mg PO DAILY 12/22/17 12/22/17 Allergies Allergy/AdvReac Type Severity Reaction Status Date / Time Iodinated Contrast- Oral and Allergy Dizziness Verified 08/15/17 09:18 IV Dye Review of Systems: As reviewed in the HPI. All other systems reviewed are negative or normal. Past Medical History - Past Medical History Attestation: Yes The following information was validated with the patient. Source: patient, old records reviewed, obtained from family Medical history: Reports: atrial fibrillation, cancer, coronary artery disease, diabetes, myocardial infarction, peripheral artery disease Surgical history: Reports: angioplasty/stent, other (Ears) Psychiatric history: Reports: no psych history - Social History Smoking Status: Current every day smoker Smokeless Tobacco Status: No Alcohol use: Reports: none Drug use: Reports: none Physical Exam CONSTITUTIONAL: [ill appearing, alert and in no acute distress] EYES: [EOMI, clear conjunctiva, PERRLA] HENT: [Normocephalic, atraumatic, moist mucus membranes, normal oropharynx] NECK: [normal inspection, full ROM, trachea midline, no obvious swelling] PULMONARY: [normal lung sounds bilaterally, normal chest rise and fall, no respiratory distress or stridor, no wheezes, no rales, no rhonchi CARDIOVASCULAR: [tachycardic, regular rhythm, normal heart sounds, no murmurs, distal extremities are warm and well perfused] GASTROINSTESTINAL: [soft, non-tender, non-rigid, mildly distended, but is at baseline, no guarding, no rebound, normal bowel sounds] GENITOURINARY/RECTAL: [deferred] NEUROLOGIC: [Alert, oriented x3, normal speech, moves all extremities] EXTREMITIES: [Normal inspection, full ROM, no tenderness, no pedal edema, normal capillary refill] MUSCULOSKELETAL: [no gross deformities, atraumatic] SKIN: [No cyanosis, no diaphoresis, normal color, warm, no rash, diabetic ulcer with surrounding cellulitis to the] PSYCHIATRIC: [normal mood and affect] - General Limitations: no limitations General appearance: alert, in no apparent distress Course - Reevaluation(s) Reevaluation #1: Patient's lab work does show an elevated troponin, BNP with mild pulmonary edema. Patient states essentially asymptomatic. He does meet sepsis criteria. Because of his lactic acid and left foot wound with TACHYCARDIA. Was given antibiotics. Aspirin. Admitted to the hospital service. Did request that we add on a d-dimer to evaluate for PE. Vital Signs O2 Sat by Pulse Oximetry 85 04/10/18 18:25 Temperature 98.7 F 04/10/18 18:29 Pulse Rate 117 04/10/18 20:05 Respiratory Rate 18 04/10/18 20:05 Blood Pressure 125/65 04/10/18 20:05 O2 Sat by Pulse Oximetry 100 04/10/18 20:05 Oxygen Delivery Oxygen Delivery Room Air Medical Decision Making - Medical Records Medical records reviewed: Yes I reviewed the patient's medical records. - Lab Data Lab results reviewed: Yes I reviewed the patient's lab results. Result diagrams: 04/10/18 18:48 04/10/18 18:48 Lab Results 04/10/18 04/10/18 04/10/18 Range/Units 18:48 18:48 18:48 WBC 7.7 (4.3-11.1) K/mcL RBC 4.60 (4.19-5.50) M/mcL Hgb 13.5 (12.9-16.9) g/dL Hct 41.6 (37.5-50.1) % MCV 90.4 (83.0-100.0) fL MCH 29.3 (28.0-33.3) pg MCHC 32.5 (31.6-35.5) g/dL RDW 13.9 (11.5-14.5) % Plt Count 178 (140-400) K/mcL MPV 11.5 (9.4-12.4) fL Immature Gran % 0.9 (0-4) % Seg Neutrophils % 68.0 % Lymphocytes % 22.8 % Monocytes % 5.4 % Eosinophils % 2.1 % Basophils % 0.8 % Neutrophils # 5.2 (1.6-8.9) K/mcL Lymphocytes # 1.8 (0.6-4.6) K/mcL Monocytes # 0.4 (0.0-1.3) K/mcL Eosinophils # 0.2 (0.0-0.6) K/mcL Basophils # 0.1 (0.0-0.2) K/mcL PT 11.9 (9.4-12.1) Seconds INR 1.1 APTT 42.7 H (26.0-36.0) Seconds Sodium 132 L (136-145) mEq/L Potassium 4.0 (3.5-5.1) mEq/L Chloride 95 L (98-107) mEq/L Carbon Dioxide 26 (23-29) mEq/L BUN 24 H (8-23) mg/dL Creatinine 2.02 H (0.70-1.30) mg/dL Est GFR ( Amer) 39 L (> 60) Est GFR (Non-Af Amer) 32 L (> 60) BUN/Creatinine Ratio 12 (6-26) Glucose 305 H (70-105) mg/dL Calculated Osmolality 290 (280-300) Lactic Acid (0.5-2.2) mmol/L Calcium 9.7 (8.6-10.3) mg/dL Phosphorus 3.6 (2.7-4.5) mg/dL Magnesium 2.0 (1.6-2.6) mg/dL Total Bilirubin 0.3 (0.3-1.0) mg/dL Direct Bilirubin 0.1 (0.0-0.2) mg/dL Indirect Bilirubin 0.2 (0.0-1.2) mg/dL AST 13 (13-39) Units/L ALT 11 (7-52) Units/L Alkaline Phosphatase 73 (34-104) Units/L Troponin I 0.07 H* (< 0.04) ng/mL B-Natriuretic Peptide (Less than 100) pg/mL Serum Total Protein 7.4 (6.4-8.9) g/dL Albumin 4.0 (3.5-5.7) g/dL Globulin 3.4 (2.4-3.5) g/dL Albumin/Globulin Ratio 1.2 (1.1-2.2) Lipase 27 (11-82) Units/L 04/10/18 04/10/18 Range/Units 18:48 18:48 WBC (4.3-11.1) K/mcL RBC (4.19-5.50) M/mcL Hgb (12.9-16.9) g/dL Hct (37.5-50.1) % MCV (83.0-100.0) fL MCH (28.0-33.3) pg MCHC (31.6-35.5) g/dL RDW (11.5-14.5) % Plt Count (140-400) K/mcL MPV (9.4-12.4) fL Immature Gran % (0-4) % Seg Neutrophils % % Lymphocytes % % Monocytes % % Eosinophils % % Basophils % % Neutrophils # (1.6-8.9) K/mcL Lymphocytes # (0.6-4.6) K/mcL Monocytes # (0.0-1.3) K/mcL Eosinophils # (0.0-0.6) K/mcL Basophils # (0.0-0.2) K/mcL PT (9.4-12.1) Seconds INR APTT (26.0-36.0) Seconds Sodium (136-145) mEq/L Potassium (3.5-5.1) mEq/L Chloride (98-107) mEq/L Carbon Dioxide (23-29) mEq/L BUN (8-23) mg/dL Creatinine (0.70-1.30) mg/dL Est GFR ( Amer) (> 60) Est GFR (Non-Af Amer) (> 60) BUN/Creatinine Ratio (6-26) Glucose (70-105) mg/dL Calculated Osmolality (280-300) Lactic Acid 3.2 H (0.5-2.2) mmol/L Calcium (8.6-10.3) mg/dL Phosphorus (2.7-4.5) mg/dL Magnesium (1.6-2.6) mg/dL Total Bilirubin (0.3-1.0) mg/dL Direct Bilirubin (0.0-0.2) mg/dL Indirect Bilirubin (0.0-1.2) mg/dL AST (13-39) Units/L ALT (7-52) Units/L Alkaline Phosphatase (34-104) Units/L Troponin I (< 0.04) ng/mL B-Natriuretic Peptide 210 H (Less than 100) pg/mL Serum Total Protein (6.4-8.9) g/dL Albumin (3.5-5.7) g/dL Globulin (2.4-3.5) g/dL Albumin/Globulin Ratio (1.1-2.2) Lipase (11-82) Units/L - Radiology Data Radiology results reviewed: Yes I reviewed the patient's radiology results. - EKG Data EKG #1 EKG attestation: Yes I reviewed and interpreted this EKG. EKG results narrative: A. fib, rate 131, left axis deviation, no acute ischemic changes
[2018-04-10 19:12] LABS: Basophils # 0.1 K/mcL (0.0-0.2); Basophils % 0.8 %; Eosinophils # 0.2 K/mcL (0.0-0.6); Eosinophils % 2.1 %; Hematocrit 41.6 % (37.5-50.1); Hemoglobin 13.5 g/dL (12.9-16.9); Immature Granulocytes % 0.9 % (0-4); Lymphocytes # 1.8 K/mcL (0.6-4.6); Lymphocytes % 22.8 %; Mean Corpuscular HGB Conc 32.5 g/dL (31.6-35.5); Mean Corpuscular Hemoglobin 29.3 pg (28.0-33.3); Mean Corpuscular Volume 90.4 fL (83.0-100.0); Mean Platelet Volume 11.5 fL (9.4-12.4); Monocytes # 0.4 K/mcL (0.0-1.3); Monocytes % 5.4 %; Neutrophils # 5.2 K/mcL (1.6-8.9); Platelet Count 178 K/mcL (140-400); Red Cell Distribution Width 13.9 % (11.5-14.5)
--- NOTE | 2018-04-10 19:18 | Emergency Department Note ---
Disposition Clinical Impression: Atrial fibrillation, CKD (chronic kidney disease), stage III, Elevated troponin, Foot ulcer, left Disposition: Admitted As Inpatient Forms: ED Satisfaction Letter, Work/School Release General Adult HPI - General Chief complaint: ED General Medical Stated complaint: low O2, sent from family doctor Time Seen by Provider: 04/10/18 18:25 Source: patient, family Mode of arrival: EMS Limitations: no limitations - History of Present Illness Pain Scale: 0 - Related Data Home Medications Medication Instructions Recorded Confirmed Aspirin [Lo-Dose Aspirin EC] 81 mg PO DAILY 12/22/17 12/22/17 Gabapentin [Neurontin] 600 mg PO TID 12/22/17 12/22/17 Glimepiride [Amaryl] 2 mg PO DAILY 12/22/17 12/22/17 HYDROcodone/Acet 7.5/325 mg [[place] 1 tab PO TID PRN 12/22/17 12/22/17 7.5-325 mg] Insulin Lispro Protamin/Lispro 70 unit SQ BID 12/22/17 12/22/17 [Humalog Mix 75-25 Kwikpen] Lisinopril-HCTZ 20-12.5 [Prinzide 1 tab PO DAILY 12/22/17 12/22/17 20-12.5] Lovastatin 40 mg PO DAILY 12/22/17 12/22/17 Meloxicam [Mobic] 7.5 mg PO DAILY 12/22/17 12/22/17 Pioglitazone HCl [Actos] 30 mg PO DAILY 12/22/17 12/22/17 Terbinafine HCl 250 mg PO DAILY 12/22/17 12/22/17 Previous Rx's Medication Instructions Recorded Metoprolol XL (24 HR) Succ [Toprol 100 mg PO DAILY #30 tab.er.24h 12/25/17 Xl] Allergies Allergy/AdvReac Type Severity Reaction Status Date / Time Iodinated Contrast- Oral and Allergy Dizziness Verified 08/15/17 09:18 IV Dye Past Medical History - Past Medical History Medical history: Reports: atrial fibrillation, cancer, coronary artery disease, diabetes, myocardial infarction, peripheral artery disease Surgical history: Reports: angioplasty/stent, other (Ears) Psychiatric history: Reports: no psych history - Social History Smoking Status: Current every day smoker Smokeless Tobacco Status: No Alcohol use: Reports: none Drug use: Reports: none Physical Exam - General Limitations: no limitations General appearance: alert, in no apparent distress Course Vital Signs O2 Sat by Pulse Oximetry 85 04/10/18 18:25 Temperature 98.7 F 04/10/18 18:29 Pulse Rate 117 04/10/18 20:05 Respiratory Rate 18 04/10/18 20:05 Blood Pressure 125/65 04/10/18 20:05 O2 Sat by Pulse Oximetry 100 04/10/18 20:05 Oxygen Delivery Oxygen Delivery Room Air Medical Decision Making - [facility] Narrative Medical decision making narrative: Patient's in atrial fibrillation with RVR. This could explain his elevated troponin. His blood pressure has improved to 125 systolic. We will give him a one-time dose of 2.5 mg IV Lopressor to see if this helps with his A. fib. He states he is currently off all of his blood pressure medications. He denies any active chest pain. Chest x-ray does not reveal any acute abnormalities. We will give the patient aspirin secondary to his troponin elevation. He is chronically anticoagulated. Lactic acidosis. Patient will be given some IV fluids for gently as his chest x-ray does show some questionable pulmonary edema. He does not appear to be in acute CHF based on clinical presentation. However, his creatinine is elevated to this would coincide with him being dry. - Medical Records Medical records reviewed: Yes I reviewed the patient's medical records. - Lab Data Lab results reviewed: Yes I reviewed the patient's lab results. Result diagrams: 04/10/18 18:48 04/10/18 18:48 Lab Results 04/10/18 04/10/18 04/10/18 Range/Units 18:48 18:48 18:48 WBC 7.7 (4.3-11.1) K/mcL RBC 4.60 (4.19-5.50) M/mcL Hgb 13.5 (12.9-16.9) g/dL Hct 41.6 (37.5-50.1) % MCV 90.4 (83.0-100.0) fL MCH 29.3 (28.0-33.3) pg MCHC 32.5 (31.6-35.5) g/dL RDW 13.9 (11.5-14.5) % Plt Count 178 (140-400) K/mcL MPV 11.5 (9.4-12.4) fL Immature Gran % 0.9 (0-4) % Seg Neutrophils % 68.0 % Lymphocytes % 22.8 % Monocytes % 5.4 % Eosinophils % 2.1 % Basophils % 0.8 % Neutrophils # 5.2 (1.6-8.9) K/mcL Lymphocytes # 1.8 (0.6-4.6) K/mcL Monocytes # 0.4 (0.0-1.3) K/mcL Eosinophils # 0.2 (0.0-0.6) K/mcL Basophils # 0.1 (0.0-0.2) K/mcL PT 11.9 (9.4-12.1) Seconds INR 1.1 APTT 42.7 H (26.0-36.0) Seconds Sodium 132 L (136-145) mEq/L Potassium 4.0 (3.5-5.1) mEq/L Chloride 95 L (98-107) mEq/L Carbon Dioxide 26 (23-29) mEq/L BUN 24 H (8-23) mg/dL Creatinine 2.02 H (0.70-1.30) mg/dL Est GFR ( Amer) 39 L (> 60) Est GFR (Non-Af Amer) 32 L (> 60) BUN/Creatinine Ratio 12 (6-26) Glucose 305 H (70-105) mg/dL Calculated Osmolality 290 (280-300) Lactic Acid (0.5-2.2) mmol/L Calcium 9.7 (8.6-10.3) mg/dL Phosphorus 3.6 (2.7-4.5) mg/dL Magnesium 2.0 (1.6-2.6) mg/dL Total Bilirubin 0.3 (0.3-1.0) mg/dL Direct Bilirubin 0.1 (0.0-0.2) mg/dL Indirect Bilirubin 0.2 (0.0-1.2) mg/dL AST 13 (13-39) Units/L ALT 11 (7-52) Units/L Alkaline Phosphatase 73 (34-104) Units/L Troponin I 0.07 H* (< 0.04) ng/mL Serum Total Protein 7.4 (6.4-8.9) g/dL Albumin 4.0 (3.5-5.7) g/dL Globulin 3.4 (2.4-3.5) g/dL Albumin/Globulin Ratio 1.2 (1.1-2.2) Lipase 27 (11-82) Units/L // Range/Units 18:48 WBC (4.3-11.1) K/mcL RBC (4.19-5.50) M/mcL Hgb (12.9-16.9) g/dL Hct (37.5-50.1) % MCV (83.0-100.0) fL MCH (28.0-33.3) pg MCHC (31.6-35.5) g/dL RDW (11.5-14.5) % Plt Count (140-400) K/mcL MPV (9.4-12.4) fL Immature Gran % (0-4) % Seg Neutrophils % % Lymphocytes % % Monocytes % % Eosinophils % % Basophils % % Neutrophils # (1.6-8.9) K/mcL Lymphocytes # (0.6-4.6) K/mcL Monocytes # (0.0-1.3) K/mcL Eosinophils # (0.0-0.6) K/mcL Basophils # (0.0-0.2) K/mcL PT (9.4-12.1) Seconds INR APTT (26.0-36.0) Seconds Sodium (136-145) mEq/L Potassium (3.5-5.1) mEq/L Chloride (98-107) mEq/L Carbon Dioxide (23-29) mEq/L BUN (8-23) mg/dL Creatinine (0.70-1.30) mg/dL Est GFR ( Amer) (> 60) Est GFR (Non-Af Amer) (> 60) BUN/Creatinine Ratio (6-26) Glucose (70-105) mg/dL Calculated Osmolality (280-300) Lactic Acid 3.2 H (0.5-2.2) mmol/L Calcium (8.6-10.3) mg/dL Phosphorus (2.7-4.5) mg/dL Magnesium (1.6-2.6) mg/dL Total Bilirubin (0.3-1.0) mg/dL Direct Bilirubin (0.0-0.2) mg/dL Indirect Bilirubin (0.0-1.2) mg/dL AST (13-39) Units/L ALT (7-52) Units/L Alkaline Phosphatase (34-104) Units/L Troponin I (< 0.04) ng/mL Serum Total Protein (6.4-8.9) g/dL Albumin (3.5-5.7) g/dL Globulin (2.4-3.5) g/dL Albumin/Globulin Ratio (1.1-2.2) Lipase (11-82) Units/L - Radiology Data Radiology results reviewed: Yes I reviewed the patient's radiology results. Critical Care Time Critical Care Time: Yes Total Critical Care Time: 35 Attestation: cc time of 35 min spent in management of elevated trop, a fib, lactic acidosis, rui. Attestation Statement - Attestation Attestation: I examined this patient and my medical decision-making was reviewed with the Resident Physician. I agree with the documented findings, disposition and treatment plan as described except to the extent set forth below. 72-year-old male in presented to the emergency room for concerns for hypoxia and hypotension. Sent by PCP. Patient has a multiple medical problems. Patient was documented to have a pulse ox in the 80s on room air although he states he was never short of breath. He does not wear home oxygen. He states his blood pressures have been running low despite medication changes. They wanted him to be seen by cardiology. He also has a chronic left ankle diabetic ulcer. Asa ws with podiatry for this. At this point, the patient's concern is for his low blood pressure mostly. We will evaluate him for that from the ER standpoint. He denies any chest pain. No recent fevers.
[2018-04-10 19:22] LABS: INR 1.1; Prothrombin Time 11.9 Seconds (9.4-12.1)
[2018-04-10 19:25] LABS: Activated Partial Thrombo Time 42.7 Seconds (26.0-36.0)
[2018-04-10 19:26] LABS: Albumin/Globulin Ratio 1.2 (1.1-2.2); Bilirubin,Direct 0.1 mg/dL (0.0-0.2); Bilirubin,Indirect 0.2 mg/dL (0.0-1.2); Bilirubin,Total 0.3 mg/dL (0.3-1.0); Calcium 9.7 mg/dL (8.6-10.3); Globulin 3.4 g/dL (2.4-3.5); Phosphorous 3.6 mg/dL (2.7-4.5); Total Protein 7.4 g/dL (6.4-8.9)
[2018-04-10 19:30] LABS: Troponin I 0.07 ng/mL (< 0.04)
[2018-04-10] MEDS: Aspirin 81 MG TAB.CHEW ONE (20:01)
[2018-04-10] MEDS ORDERED: Aspirin 81 MG TAB.CHEW PO ONE (20:06)
[2018-04-10] MEDS ORDERED: 0.9 % Sodium Chloride 1,000 ML IVC ONE (20:08)
[2018-04-10] MEDS ORDERED: 0.9 % Sodium Chloride 1,000 ML IVC SCH (20:15)
[2018-04-10] MEDS ORDERED: Naloxone 0.4 MG/ML INJ IVP PRN (21:44)
--- NOTE | 2018-04-10 21:53 | Internal Med History&Physical ---
Date of Encounter: 04/10/18 Time of Encounter: 23:00 Internal Medicine - H&P: HPI Chief complaint: Low O2 Saturation History of present illness: Mr. Ayala is a 72 year old male with a past medical history of diabetes, atrial fibrillation, chronic kidney disease, coronary artery disease, syncopal episodes and peripheral vascular disease who was referred by his PCP after patient was found to have a O2 saturation and this low 70s. Patient states that he was otherwise feeling fine with no complaints of chest pain or shortness of breath. Patient states he has been having low blood pressure as well over the past several weeks and has not taken one of his antihypertensives but he is not sure which. Patient also has a 2 cm ulcer on the dorsum of the left foot which he states occurred due to rubbing of the strap of his sandals against that area of his skin. Patient has seen a pigment pumper for diabetic foot ulcers in the past. Upon initial assessment in the ED patient was mildly hypotensive with a blood pressure of 91/76. Patient received 2 L of normal saline. Laboratory workup showed a mildly elevated troponin, BNP, lactic acid of 3.2 and mild pulmonary edema on imaging. Patient was started on antibiotics due to concern for sepsis in the setting of his foot infection. Past Med Surg Social Fam HX - Past Medical History Medical history: atrial fibrillation, cancer, coronary artery disease, diabetes, myocardial infarction, peripheral artery disease Additional medical history: prostate 20 years ago Psychiatric history: no psych history - Past Surgical History Surgical History: angioplasty/stent, other (Ears) Additional surgical history: 3 stents placed - Social History Smoking Status: Current every day smoker Smokeless Tobacco Status: No Alcohol use: none Drug use: none - Family History Mother Hx Family Cardiac Disorders: Yes (CAD, CABG) Hx Family Endocrine Disorder: Yes (DM) Father Hx Family Cardiac Disorders: Yes (HI) Internal Medicine - H&P: Meds Aspirin [Lo-Dose Aspirin EC] 81 mg PO DAILY 12/22/17 [History] Gabapentin [Neurontin] 600 mg PO TID 12/22/17 [History] Glimepiride [Amaryl] 2 mg PO DAILY 12/22/17 [History] HYDROcodone/Acet 7.5/325 mg [Courtenay 7.5-325 mg] 1 tab PO TID PRN 12/22/17 [History] Insulin Lispro Protamin/Lispro [Humalog Mix 75-25 Kwikpen] 70 unit SQ BID 12/22/17 [History] Lisinopril-HCTZ 20-12.5 [Prinzide 20-12.5] 1 tab PO DAILY 12/22/17 [History] Lovastatin 40 mg PO DAILY 12/22/17 [History] Pioglitazone HCl [Actos] 30 mg PO DAILY 12/22/17 [History] Terbinafine HCl 250 mg PO DAILY 12/22/17 [History] Atenolol [Tenormin] 50 mg PO DAILY 04/10/18 [History] Collagenase Oint [Santyl] 1 appl TP DAILY 04/10/18 [History] Apixaban [Eliquis] 5 mg PO BID #60 tablet 04/11/18 [Rx] Allergy/AdvReac Type Severity Reaction Status Date / Time Iodinated Contrast- Oral and Allergy Dizziness Verified 08/15/17 09:18 IV Dye All Systems PM: A 10-system review of systems was performed and is negative for pertinent findings except as documented above in the HPI. - Constitutional Constitutional: no chills, no fever(s), no night sweats - EENT Eyes: no change in vision, no discharge, no pain, no photophobia Ears: no ear discharge, no ear pain, no tinnitus Nose, mouth and throat: no dysphagia, no nasal discharge, no neck pain, no sore throat - Cardiovascular Cardiovascular ROS IM: no chest pain, no diaphoresis, no dyspnea, no lightheadedness, no palpitations, no syncope - Respiratory Respiratory: no cough, no dyspnea, no wheezing, no excessive phlegm production - Gastrointestinal Gastrointestinal: no abdominal pain, no diarrhea, no hematemesis, no hematoche norm, no melena, no nausea, no vomiting - Musculoskeletal Musculoskeletal ROS IM: no numbness, no tingling - Integumentary Integumentary IM: no rash, no unusual bruising - Neurological Neurological ROS: no confusion, no convulsions, no focal weakness, no numbness, no tingling, no tremor(s) - Hematologic/Lymphatic Hematologic/Lymphatic: no easy bruising - Constitutional Vitals: Temp Pulse Resp BP Pulse Ox 98.7 F 117 16 128/72 100 04/10/18 18:29 04/10/18 20:05 04/10/18 21:37 04/10/18 21:37 04/10/18 20:05 Exam: General: Alert and oriented 3; lying in bed in no acute distress Skin:Normal color, no rash, 2 x 2 centimeter lesion on the dorsum of the left foot with. Mild purulent drainage. HEENT:EOM, pupils equal, round and reactive. Cardiovascular:Normal S1 & S2, no rubs, murmurs or gallops. No JVD. Pulse irregularly irregular. Lungs:Normal breath sounds, no wheezes or crackles. Abdomen:Soft, non-tender, no rigidity. Extremities:No deformity, no edema or tenderness, no joint swelling or clubbing. Neurological:Normal cognition and motor skills. Pulses:Carotid and radial pulses normal +2. Rest of the physical exam is non contributory Internal Med - H&P Results - Labs CBC & Chem 7: 04/11/18 06:47 04/11/18 00:57 Labs: Short CBC 04/10/18 Range/Units 18:48 WBC 7.7 (4.3-11.1) K/mcL Hgb 13.5 (12.9-16.9) g/dL Hct 41.6 (37.5-50.1) % Plt Count 178 (140-400) K/mcL Neutrophils # 5.2 (1.6-8.9) K/mcL BMP 04/10/18 18:48 Sodium 132 L Potassium 4.0 Chloride 95 L Carbon Dioxide 26 BUN 24 H Creatinine 2.02 H Glucose 305 H Calcium 9.7 Cardiac Enzymes 04/10/18 Range/Units 18:48 Troponin I 0.07 H* (< 0.04) ng/mL Liver Function 04/10/18 Range/Units 18:48 Total Bilirubin 0.3 (0.3-1.0) mg/dL Direct Bilirubin 0.1 (0.0-0.2) mg/dL AST 13 (13-39) Units/L ALT 11 (7-52) Units/L Alkaline Phosphatase 73 (34-104) Units/L Albumin 4.0 (3.5-5.7) g/dL - Impressions ITS Impressions Chest X-Ray 04/10/18 18:38 IMPRESSION: Mild pulmonary vascular congestion. Low lung volumes. Stable mild cardiomegaly. D/ / Matt Rivera MD / Matt Rivera MD Interpreting Provider: Matt Rivera MD Foot X-Ray 04/10/18 18:55 IMPRESSION: No acute osseous abnormality. D/ / Kwaku Palmer MD / Kwaku Palmer MD Interpreting Provider: Kwaku Palmer MD - Assessment and plan (1) Hypoxemia Current Visit: Yes Status: Acute Assessment and plan: Reported hypoxemia with an O2 saturation in the low 70s while at PCP office. Upon admission and assessment, found to have an O2 saturation of 85% on room air. However ED provider reports poor waveform when performing that initial assessment and O2 saturations immediately improved shortly thereafter to 97% on room air. Chest x-ray shows mild pulmonary vascular congestion. Patient does not have evidence of CHF nor documented history though he does have coronary artery disease. Last echo performed in December of this year showed an ejection f raction of 50-55%, normal normal LV function, indeterminate diastolic function, atypical septal motion consistent with bundle branch block and no evidence of pulmonary hypertension.. Patient completely asymptomatic per history. No reports of chest pain or pleuritic chest pain. D-dimer was obtained in the setting of his hypoxemia and hypotension and found to be 436. Unlikely PE. Patient now satting in the high 90s on room air. Etiology of the patient's hypoxemia still unclear; awaiting verify if measurement as outpatient was accurate. Low suspicion for CHF. Consider repeat echo. Monitor. (2) Hypotension Current Visit: No Status: Acute Assessment and plan: Hypotension with blood pressure in the low 90s on admission. Unsure what the patient's blood pressure was during office visit at PCP. Patient received 2 L of fluid with appropriate response. We will monitor for now and hold patient's lisinopril for now. Qualifiers: Hypotension type: unspecified hypotension type Qualified Code(s): I95.9 - Hypotension, unspecified (3) Atrial fibrillation Current Visit: Yes Status: Acute Assessment and plan: Atrial fibrillation with rapid ventricular response with heart rate in the 130s. Suspect medication noncompliance. Patient is on atenolol 50 mg at home. Patient given 2.5 mg of Lopressor in the ED and an additional 5 mg on the floor. Heart rate now in the low 100s. We will resume patient's atenolol in the morning. Patient does not appear currently to be on anticoagulation though looking back at records during his admission in December, patient was started on Eliquis. Unsure why or if the patient discontinued this medication as he is unsure himself. We will start patient on heparin drip for now. We will need to verify with the patient is on anticoagulation or not. Continue telemetry. Qualifiers: Atrial fibrillation type: unspecified Qualified Code(s): I48.91 - U nspecified atrial fibrillation (4) Elevated troponin Current Visit: Yes Status: Acute Assessment and plan: Elevated troponin of 0.07. Trended down to 0.06. No reports of chest pain. EKG appears unchanged from previous EKG. Likely secondary to demand ischemia. We will continue to trend troponins. Patient received loading dose of aspirin in the ED. (5) Lactic acidosis Current Visit: Yes Status: Acute Assessment and plan: Initial lactic acid of 3.2. Likely secondary to hypotension though cannot di scount possible sepsis in the setting of his left foot ulcer. We will repeat lactic acid now the patient received 2 L fluid. (6) Foot ulcer, left Current Visit: Yes Status: Acute Assessment and plan: 2 x 2 centimeter ulcer on the dorsum of the left foot with mild purulent drainage in the setting of diabetes and peripheral vascular disease. X-ray of the foot shows no acute osseous abnormality. We will obtain wound care consult. Continue antibiotics. Consider podiatry consult. Qualifiers: Non-pressure ulcer stage: unspecified non-pressure ulcer stage Qualified Code(s): L97.529 - Non-pressure chronic ulcer of other part of left foot with unspecified severity (7) Sepsis Current Visit: Yes Status: Acute Assessment and plan: Possible sepsis in the setting of atrial fibrillation and elevated lactic acid with left foot ulcer as possible source of infection. Patient received 2 L of fluid. Currently hemodynamically stable. we will repeat lactic acid. Continue antibiotics. Follow-up blood cultures. Qualifiers: Sepsis type: sepsis due to unspecified organism Qualified Code(s): A41.9 - Sepsis, unspecified organism (8) [id number] kidney injury Current Visit: Yes Status: Acute Assessment and plan: Acute on chronic kidney injury likely secondary to hypotension and ANGUS inhibitor use. We will hold the lisinopril for now. Repeat chemistry shows improvement in creatinine after fluids. Into the supportive care. Qualifiers: Qualified Code(s): N17.9 - Acute kidney failure, unspecified; N18.9 - Chronic kidney disease, unspecified (9) Diabetes mellitus with peripheral vascular disease Current Visit: No Status: Chronic Assessment and plan: Diabetic diet. Blood glucose checks. Sliding scale insulin. - Time Spent With Patient Total time spent is greater than 50% in coordination of care (as documented) at patient's floor/unit and/or counseling patient:
[2018-04-11 01:58] LABS: Albumin 3.6 g/dL (3.5-5.7); Albumin/Globulin Ratio 1.2 (1.1-2.2); Bilirubin,Total 0.3 mg/dL (0.3-1.0); Calcium 8.9 mg/dL (8.6-10.3); Globulin 3.1 g/dL (2.4-3.5); Potassium 3.7 mEq/L (3.5-5.1); Total Protein 6.7 g/dL (6.4-8.9)
[2018-04-11] MEDS ORDERED: *HR* Metoprolol 5 MG/5 ML VIAL IVP ONE ×3 (02:12→20:06)
[2018-04-11] MEDS ORDERED: Dextrose Gel 15 GM/37.5 ML TUBE PO PRN ×2 (03:02)
[2018-04-11] MEDS ORDERED: *HR* Dextrose 50 % in Water (Syg) 50 ML SYRINGE IVP PRN (03:02)
[2018-04-11] MEDS ORDERED: D5% in Water 1,000 ML IVC PRN (03:02)
[2018-04-11] MEDS ORDERED: *HR* Heparin 5,000 UNIT/ML VIAL IVP ONE (04:04)
[2018-04-11] MEDS ORDERED: *HR* Heparin 5,000 UNIT/ML VIAL IVP PRN ×2 (04:04)
[2018-04-11] MEDS: Heparin 25,000 UNIT/500 ML D5W 25,000 UNIT/500 ML BAG IVC SCH ×2 (05:39→22:40)
[2018-04-11] MEDS: Piperacillin/Tazobactam 3.375 GM in 0.9 % Sodium Chloride Mini Bag 100 ML IVPB SCH ×3 (05:39→20:51)
[2018-04-11 07:03] LABS: Hematocrit 37.5 % (37.5-50.1); Hemoglobin 12.5 g/dL (12.9-16.9); Mean Corpuscular HGB Conc 33.3 g/dL (31.6-35.5); Mean Corpuscular Hemoglobin 29.5 pg (28.0-33.3); Mean Corpuscular Volume 88.4 fL (83.0-100.0); Mean Platelet Volume 11.2 fL (9.4-12.4); Platelet Count 147 K/mcL (140-400); Red Blood Count 4.24 M/mcL (4.19-5.50); Red Cell Distribution Width 13.9 % (11.5-14.5)
[2018-04-11 07:11] LABS: Heparin anti-factor XA UFH 0.93 IU/mL (0.30-0.70); INR 1.1; Prothrombin Time 12.5 Seconds (9.4-12.1)
[2018-04-11] MEDS: Insulin LISPRO 300 UNITS/3 ML VIAL SQ SCH ×3 (08:18→17:05)
[2018-04-11] MEDS: Aspirin Enteric Coated 81 MG Tablet PO SCH (08:18)
[2018-04-11] MEDS: Gabapentin 300 MG CAPSULE PO SCH ×3 (08:23→20:50)
--- NOTE | 2018-04-11 09:06 | Internal Med Progress Note ---
Hospitalist Progress Note - Encounter Date of Encounter: 04/11/18 Time of Encounter: 09:00 - Exam Vitals: Temp Pulse Resp BP Pulse Ox 97.7 F 106 16 99/77 95 04/11/18 04:00 04/11/18 04:00 04/11/18 04:00 04/11/18 04:00 04/11/18 04:00 Exam: General: Alert and oriented 3; lying in bed in no acute distress Skin:Normal color, no rash, 2 x 2 centimeter lesion on the dorsum of the left foot with. Mild purulent drainage. HEENT:EOM, pupils equal, round and reactive. Cardiovascular:Normal S1 & S2, no rubs, murmurs or gallops. No JVD. Pulse irregularly irregular. Lungs:Normal breath sounds, no wheezes or crackles. Abdomen:Soft, non-tender, no rigidity. Extremities:No deformity, no edema or tenderness, no joint swelling or clubbing. Neurological:Normal cognition and motor skills. Pulses:Carotid and radial pulses normal +2. Rest of the physical exam is non contributory - Assessment and Plan (1) Acute on chronic diastolic (congestive) heart failure Current Visit: Yes Status: Acute Assessment and Plan: Last echo showed EF of 50-55%. Pt has mild pulmonary vascular congestion Will start on gentle diuresis with IV lasix. D/C IV fluids (2) Atrial fibrillation Current Visit: Yes Status: Acute Assessment and Plan: Atrial fibrillation with rapid ventricular response with heart rate in the 130s. Continue po beta blockers and heparin drip. cardiology consulted and appreciate recs (3) Elevated troponin Current Visit: Yes Status: Acute Assessment and Plan: Elevated troponin up to 0.08. Elevated from previous baseline of less than 0.03. No reports of chest pain. EKG appears unchanged from previous EKG. Possibly secondary to demand ischemia. Patient was supposed to obtain outpatient stress test from previous cardiology notes Cardiology consulted. Repeat 2D echo to assess for wall motion abnormalities. Keep NPO (4) Hypotension Current Visit: No Status: Acute Assessment and Plan: Likely multifatoria from afib with RVR and acute diastolic CHF. Gentle diuresis Rate control (5) Diabetes mellitus with peripheral vascular disease Current Visit: No Status: Chronic Assessment and Plan: Diabetic diet. Blood glucose checks. Sliding scale insulin. (6) Foot ulcer, left Current Visit: Yes Status: Acute Assessment and Plan: 2 x 2 centimeter ulcer on the dorsum of the left foot with mild purulent d rainage in the setting of diabetes and peripheral vascular disease. X-ray of the foot shows no acute osseous abnormality. We will obtain wound care consult. Continue antibiotics. Consider podiatry consult. (7) Hypoxemia Current Visit: Yes Status: Acute Assessment and Plan: Reported hypoxemia with an O2 saturation in the low 70s while at PCP office. Upon admission and assessment, found to have an O2 saturation of 85% on room air. Has been fine on room air on the floor. nclear etiology for transient hypoxemia. May be multifactorial from afib with RVR and acute diastolic CHF. Will control heart rate and diurese gently (8) [id number] kidney injury Current Visit: Yes Status: Acute Assessment and Plan: Acute on chronic kidney injury likely secondary to hypotension and ANGUS inhibitor use. CXR shows vascular congestion. Gentle diuresis with low dose lasix (9) Lactic acidosis Current Visit: Yes Status: Acute Assessment and Plan: Initial lactic acid of 3.2. Likely secondary to hypotension though cannot discount possible sepsis in the setting of his left foot ulcer. We will repeat lactic acid now the patient received 2 L fluid. (10) Foot ulcer Current Visit: Yes Status: Acute Assessment and Plan: Continue IV antibiotics - Time Spent with Patient Total time spent is greater than 50% in coordination of care (as documented) at patient's floor/unit and/or counseling patient: Internal Medicine: Result - Labs CBC & Chem 7: 04/11/18 06:47 04/11/18 00:57 Labs: Short CBC 04/10/18 04/11/18 Range/Units 18:48 06:47 WBC 7.7 6.7 (4.3-11.1) K/mcL Hgb 13.5 12.5 L (12.9-16.9) g/dL Hct 41.6 37.5 (37.5-50.1) % Plt Count 178 147 (140-400) K/mcL Neutrophils # 5.2 (1.6-8.9) K/mcL BMP 04/10/18 04/11/18 18:48 00:57 Sodium 132 L 131 L Potassium 4.0 3.7 Chloride 95 L 97 L Carbon Dioxide 26 24 BUN 24 H 24 H Creatinine 2.02 H 1.73 H Glucose 305 H 308 H Calcium 9.7 8.9 Cardiac Enzymes 04/10/18 04/11/18 04/11/18 Range/Units 18:48 00:57 06:47 Troponin I 0.07 H* 0.06 H* 0.08 H* (< 0.04) ng/mL Liver Function 04/10/18 04/11/18 Range/Units 18:48 00:57 Total Bilirubin 0.3 0.3 (0.3-1.0) mg/dL Direct Bilirubin 0.1 (0.0-0.2) mg/dL AST 13 13 (13-39) Units/L ALT 11 9 (7-52) Units/L Alkaline Phosphatase 73 66 (34-104) Units/L Albumin 4.0 3.6 (3.5-5.7) g/dL - ABG Interpretation ABG results: PT/INR, D-dimer PT 12.5 Seconds (9.4-12.1) H 04/11/18 06:47 D-Dimer 436 ng/mLFEU (0-500) 04/10/18 20:43 - Impressions Impressions Chest X-Ray 04/10/18 18:38 IMPRESSION: Mild pulmonary vascular congestion. Low lung volumes. Stable mild cardiomegaly. D/ / Matt Rivera MD / Matt Rivera MD Interpreting Provider: Matt Rivera MD Foot X-Ray 04/10/18 18:55 IMPRESSION: No acute osseous abnormality. D/ / Kwaku Palmer MD / Kwaku Palmer MD Interpreting Provider: Kwaku Palmer MD Consult Discharge Plan - Plan Referrals: Ariel Munson, DO [Primary Care Provider] - (2) Atrial fibrillation Qualifiers: Atrial fibrillation type: unspecified Qualified Code(s): I48.91 - Unspecified atrial fibrillation (4) Hypotension Qualifiers: Hypotension type: unspecified hypotension type Qualified Code(s): I95.9 - Hypotension, unspecified (6) Foot ulcer, left Qualifiers: Non-pressure ulcer stage: unspecified non-pressure ulcer stage Qualified Code(s): L97.529 - Non-pressure chronic ulcer of other part of left foot with unspecified severity
[2018-04-11] MEDS: Furosemide 40 MG/4 ML VIAL IVP SCH (12:27)
[2018-04-11] MEDS ORDERED: Perflutren Lipid Microsphere 1.3 ML in 0.9 % Sodium Chloride 8.7 ML IVP ONE (16:18)
[2018-04-11] MEDS ORDERED: Aminoglycoside Consult 1 EACH MC ONE (17:12)
--- NOTE | 2018-04-11 19:17 | Cardiology Consult Note ---
Addendum entered and electronically signed by Feliciano Duenas MD 04/11/18 14:24: I examined this patient and my medical decision-making was reviewed with the HE[employer]PA MANAGER. I agree with the documented findings, disposition and treatment plan as described except to the extent set forth below. A/P: Adynamic elevated troponin - not consistent with ACS at this point AF CAD sp PCI Stress test to assess for underlying ischemia. Continue rate control strategy, may use digoxin if renal function stable. Chronic AC discussed and he is agreeable understanding risk of bleeding. Thank you for the consult, Feliciano Duenas MD [facility] Addendum entered and electronically signed by Jay Saunders CNP 04/11/18 14:05: EliquisRX cost 0$. Plan starting prior to d/c. Addendum entered and electronically signed by Jay Saunders CNP 04/11/18 14:02: Noted HR improved after IV metoprolol given and also low b/p. May consider increasing bb tomorrow if b/p improves. Original Note: Date of Encounter: 04/11/18 Time of Encounter: 13:10 Assessment and Plan (1) Elevated troponin Current Visit: Yes Status: Acute Mild troponin elevation 0.06, 0.07, 0.09. Not diagnostic for ACS in the setting of hypoxia, hypotension RITA, and sepsis. EKG -atrial fibrillation with RVR. LBBB. Recommend stress test with known CAD and recent recurrent afib with RVR. Re-peat TTE ordered. (2) Atrial fibrillation Current Visit: Yes Status: Acute Presents with atrial fibrillation with RVR. Pt states he did not take his medication due to low blood pressure. He is now rate controlled after being given atenolol this morning. HR 70-80 on my exam. B/p remains low. He may not tolerate atenolol. Decrease atenolol to 25 mg daily. We will continue to monitor telemetry. TTE completed 12/2017- EF 50%. No significant valve disease. TSH normal 12/2017. Currently on heparin IV gtt. 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 He is agreeable to AC. I will send clydequis to his pharmacy for pryor check. Continue heparin for now. Qualifiers: Atrial fibrillation type: unspecified Qualified Code(s): I48.91 - Unspecified atrial fibrillation (3) CAD (coronary artery disease) Current Visit: No Status: Chronic Per reports he has history of PCI. Pt denies PR or work-up on his heart. No recent work-up. Stress test recommended in [facility]-pt setting. [facility] to [facility] patient for appt. Continue asa, statin, and bb. Stress test recommended during stay. Qualifiers: Coronary Disease-Associated Artery/Lesion type: [place] artery [place] vs. transplanted heart: [place] heart Associated angina: without angina Qualified Code(s): I25.10 - Atherosclerotic heart disease of [place] coronary artery without angina pectoris Discussion w patient/family: The assessment and plan as outlined above was discussed with the patient and/or family members who expressed understanding and agreement. All questions were answered. Thank you for involving us in the care of your patient. Please call with any questions. History of Present Illness Consult date: 04/11/18 Requesting physician: Falguni Davis Consult reason: elevated troponin, atrial fibrillation with RVR Chief complaint: Low blood pressure, foot ulcer History of present illness: Mr. Ayala is a 72 year old male with past medical history significant for CAD s/p PR and PCI, DM, HTN, and atrial fibrillation who presents from PCP office after being found to be hypoxic and hypotensive. He states he developed low blood pressure a few months ago after starting a b/p medication. When he stands to quickly he becomes lightheaded and sometimes passes out. He started drinking salt water and did have improvement in symptoms for a while. He has a right foot ulcer and follows with wound care. On admission he was found to have atrial fibrillation with RVR. He was diagnosed earlier this year. He did not have cardiology f/u after his visit. He is also found to have mild troponin elevation, RITA/CKD, lactic acidosis, and possible sepsis. He denies chest pain or palpitations. Denies significant SOB. States he is feeling well and wants to leave to go hunting. Past Med Surg Social Fam HX - Past Medical History Attestation: Yes The following information was validated with the patient. Medical history: atrial fibrillation, cancer, coronary artery disease, diabetes, hypertension, myocardial infarction, peripheral artery disease Additional medical history: prostate 20 years ago Psychiatric history: no psych history - Past Surgical History Surgical History: angioplasty/stent, other (Ears) Additional surgical history: 3 stents placed - Social History Smoking Status: Current every day smoker Smokeless Tobacco Status: No Alcohol use: none Drug use: none - Family History Mother Hx Family Cardiac Disorders: Yes (CAD, CABG) Hx Family Endocrine Disorder: Yes (DM) Father Hx Family Cardiac Disorders: Yes (PR) Medications and Allergies Aspirin [Lo-Dose Aspirin EC] 81 mg PO DAILY 12/22/17 [History] Gabapentin [Neurontin] 600 mg PO TID 12/22/17 [History] Glimepiride [Amaryl] 2 mg PO DAILY 12/22/17 [History] HYDROcodone/Acet 7.5/325 mg [[place] 7.5-325 mg] 1 tab PO TID PRN 12/22/17 [History] Insulin Lispro Protamin/Lispro [Humalog Mix 75-25 Kwikpen] 70 unit SQ BID 12/22/17 [History] Lisinopril-HCTZ 20-12.5 [Prinzide 20-12.5] 1 tab PO DAILY 12/22/17 [History] Lovastatin 40 mg PO DAILY 12/22/17 [History] Pioglitazone HCl [Actos] 30 mg PO DAILY 12/22/17 [History] Terbinafine HCl 250 mg PO DAILY 12/22/17 [History] Atenolol [Tenormin] 50 mg PO DAILY 04/10/18 [History] Collagenase Oint [Santyl] 1 appl TP DAILY 04/10/18 [History] Apixaban [Eliquis] 5 mg PO BID #60 tablet 04/11/18 [Rx] Allergy/AdvReac Type Severity Reaction Status Date / Time Iodinated Contrast- Oral and Allergy Dizziness Verified 08/15/17 09:18 IV Dye All Systems Review: The remainder of the systems were reviewed and are negative Physical Examination Vital Signs, Last 4 Hours Temp Pulse Resp BP Pulse Ox 04/11/18 12:00 99.1 F 87 12 83/54 98 General: Conversant, No Apparent Distress HEENT: Atraumatic, Normocephaly, Mucus Membranes Moist Neck: No JVD, Normal carotid pulses Cardiac: Other (Irregular) Lungs: Normal Breath Sounds, No Wheeze, Rales, Rhonchi Neuro: Alert and responsive, No focal deficits noted Abdomen: Soft, Non-Tender, Other (Distended, normal per pt) Skin: No rashes noted on visualized skin Musculoskeletal: No Chest Wall Tenderness Extremities: No Clubbing, No Cyanosis, No Edema, Normal Pulses Results 04/11/18 06:47 04/11/18 00:57 Lab Results 04/10/18 04/10/18 04/10/18 18:48 18:48 18:48 WBC 7.7 Hgb 13.5 Hct 41.6 Plt Count 178 INR 1.1 APTT 42.7 H D-Dimer Sodium 132 L Potassium 4.0 Chloride 95 L Carbon Dioxide 26 BUN 24 H Creatinine 2.02 H Glucose 305 H Calcium 9.7 Magnesium 2.0 Total Bilirubin 0.3 AST 13 ALT 11 Alkaline Phosphatase 73 Troponin I 0.07 H* B-Natriuretic Peptide Lipase 27 04/10/18 04/10/18 04/11/18 18:48 20:43 00:57 WBC Hgb Hct Plt Count INR APTT D-Dimer 436 Sodium Potassium Chloride Carbon Dioxide BUN Creatinine Glucose Calcium Magnesium Total Bilirubin AST ALT Alkaline Phosphatase Troponin I 0.06 H* B-Natriuretic Peptide 210 H Lipase 04/11/18 04/11/18 04/11/18 00:57 06:47 06:47 WBC 6.7 Hgb 12.5 L Hct 37.5 Plt Count 147 INR APTT D-Dimer Sodium 131 L Potassium 3.7 Chloride 97 L Carbon Dioxide 24 BUN 24 H Creatinine 1.73 H Glucose 308 H Calcium 8.9 Magnesium Total Bilirubin 0.3 AST 13 ALT 9 Alkaline Phosphatase 66 Troponin I 0.08 H* B-Natriuretic Peptide Lipase 04/11/18 06:47 WBC Hgb Hct Plt Count INR 1.1 APTT D-Dimer Sodium Potassium Chloride Carbon Dioxide BUN Creatinine Glucose Calcium Magnesium Total Bilirubin AST ALT Alkaline Phosphatase Troponin I B-Natriuretic Peptide Lipase - Imaging and Cardiology Echo: report reviewed - EKG Interpretation EKG results cardiology: personally reviewed Consult Discharge Plan - Plan Referrals: Ariel Munson DO [Primary Care Provider] - Prescriptions: Apixaban [Eliquis] 5 mg PO BID #60 tablet
[2018-04-11 19:52] LABS: Heparin anti-factor XA UFH 0.45 IU/mL (0.30-0.70)
[2018-04-11] MEDS ORDERED: Insulin DETEMIR 100 UNIT/ML X5UNITS SQ SCH (21:00)
[2018-04-11] MEDS ORDERED: Insulin LISPRO 300 UNITS/3 ML VIAL SQ SCH (23:00)
[2018-04-12] MEDS: Piperacillin/Tazobactam 3.375 GM in 0.9 % Sodium Chloride Mini Bag 100 ML IVPB SCH ×2 (04:43→13:17)
[2018-04-12] MEDS ORDERED: Regadenoson 0.4 MG/5 ML SYRINGE IVP ONE (08:00)
[2018-04-12] MEDS: Insulin LISPRO 300 UNITS/3 ML VIAL SQ SCH ×2 (08:24→09:04)
--- NOTE | 2018-04-12 08:39 | Internal Med Progress Note ---
Hospitalist Progress Note - Encounter Date of Encounter: 04/12/18 Time of Encounter: 08:30 - Exam Vitals: Temp Pulse Resp BP Pulse Ox 97.9 F 78 19 137/84 92 04/12/18 08:05 04/12/18 08:05 04/12/18 08:05 04/12/18 08:05 04/12/18 08:05 Exam: General: Alert and oriented 3; lying in bed in no acute distress Skin:Normal color, no rash, 2 x 2 centimeter lesion on the dorsum of the left foot with. Mild purulent drainage. HEENT:EOM, pupils equal, round and reactive. Cardiovascular:Normal S1 & S2, no rubs, murmurs or gallops. No JVD. Pulse irregularly irregular. Lungs:Normal breath sounds, no wheezes or crackles. Abdomen:Soft, non-tender, no rigidity. Extremities:No deformity, no edema or tenderness, no joint swelling or clubbing. Neurological:Normal cognition and motor skills. Pulses:Carotid and radial pulses normal +2. Rest of the physical exam is non contributory - Assessment and Plan (1) Systolic and diastolic CHF, acute Current Visit: Yes Status: Acute Assessment and Plan: Last echo showed EF of 50-55%. Pt has mild pulmonary vascular congestion Will start on gentle diuresis with IV lasix. D/C IV fluids. Repeat echo showed EF 40-45% with hypokinetic weiss. Declined nuclear stress test because he can't lie flat. Seen by cardiology and declines left heart cath. Plan to follow up outpatient (2) Atrial fibrillation Current Visit: Yes Status: Acute Assessment and Plan: .Atrial fibrillation with rapid ventricular response with heart rate in the 130s. Continue po beta blockers and eliquis. cardiology consulted and appreciate recs (3) Elevated troponin Current Visit: Yes Status: Acute Assessment and Plan: Elevated troponin up to 0.08. Elevated from previous baseline of less than 0.03. No reports of chest pain. EKG appears unchanged from previous EKG. Possibly secondary to demand ischemia. Patient was supposed to obtain outpatient stress test from previous cardiology notes Cardiology consulted. Repeat 2D echo showing depressed EF 40-45% and new hypokinetic weiss. Declined stress test and left heart cath Risks and benefits of cardiology intervention were explained to patient (4) CAD (coronary artery disease) Current Visit: No Status: Chronic (5) Diabetes mellitus with peripheral vascular disease Current Visit: No Status: Chronic Assessment and Plan: Diabetic diet. Blood glucose checks. Sliding scale insulin. (6) Hypotension Current Visit: No Status: Acute Assessment and Plan: Likely multifatoria from afib with RVR and acute diastolic CHF. Gentle diuresis Rate control (7) Foot ulcer, left Current Visit: Yes Status: Acute Assessment and Plan: 2 x 2 centimeter ulcer on the dorsum of the left foot with mild purulent drainage in the setting of diabetes and peripheral vascular disease. X-ray of the foot shows no acute osseous abnormality. We will obtain wound care consult. Continue antibiotics. Consider podiatry consult. (8) Hypoxemia Current Visit: Yes Status: Acute Assessment and Plan: Reported hypoxemia with an O2 saturation in the low 70s while at PCP office. Upon admission and assessment, found to have an O2 saturation of 85% on room air. Has been fine on room air on the floor. nclear etiology for transient hypoxemia. May be multifactorial from afib with RVR and acute diastolic CHF. Will control heart rate and diurese gently (9) Ssfnd-ra-wvczbtm kidney injury Current Visit: Yes Status: Acute Assessment and Plan: Acute on chronic kidney injury likely secondary to hypotension and CHF CXR shows vascular congestion. Gentle diuresis with low dose lasix. Creatinine improved - Time Spent with Patient Total time spent is greater than 50% in coordination of care (as documented) at patient's floor/unit and/or counseling patient: Internal Medicine: Result - Labs CBC & Chem 7: 04/11/18 06:47 04/12/18 08:55 - ABG Interpretation ABG results: PT/INR, D-dimer PT 12.5 Seconds (9.4-12.1) H 04/11/18 06:47 D-Dimer 436 ng/mLFEU (0-500) 04/10/18 20:43 - Impressions Impressions Echocardiogram 04/11/18 09:09 Impressions: LVEF 40-45%. Mild global left ventricular systolic dysfunction. Moderate diastolic dysfunction. Normal right ventricular structure and function. Mildly dilated left atrium. Mild mitral regurgitation. Consult Discharge Plan - Plan Referrals: Ariel Munson DO [Primary Care Provider] - Prescriptions: Apixaban [Eliquis] 5 mg PO BID #60 tablet Atenolol [Tenormin] 25 mg PO DAILY 30 Days #30 tablet Furosemide [Lasix] 20 mg PO DAILY 30 Days #30 tablet (2) Atrial fibrillation Qualifiers: Atrial fibrillation type: unspecified Qualified Code(s): I48.91 - Unspecified atrial fibrillation (4) CAD (coronary artery disease) Qualifiers: Coronary Disease-Associated Artery/Lesion type: [place] artery [place] vs. transplanted heart: [place] heart Associated angina: without angina Qualified Code(s): I25.10 - Atherosclerotic heart disease of [place] coronary artery wi thout angina pectoris (6) Hypotension Qualifiers: Hypotension type: unspecified hypotension type Qualified Code(s): I95.9 - Hypotension, unspecified (7) Foot ulcer, left Qualifiers: Non-pressure ulcer stage: unspecified non-pressure ulcer stage Qualified Code(s): L97.529 - Non-pressure chronic ulcer of other part of left foot with unspecified severity (9) [id number]-[id number] kidney injury Qualifiers: Qualified Code(s): N17.9 - Acute kidney failure, unspecified; N18.9 - Chronic kidney disease, unspecified
[2018-04-12] MEDS: Aspirin Enteric Coated 81 MG Tablet PO SCH (09:05)
[2018-04-12] MEDS: Furosemide 40 MG/4 ML VIAL IVP SCH (09:05)
[2018-04-12] MEDS: Gabapentin 300 MG CAPSULE PO SCH (09:05)
[2018-04-12 09:48] LABS: BUN/Creatinine Ratio 18 (6-26); Blood Urea Nitrogen 24 mg/dL (8-23); Calcium 9.2 mg/dL (8.6-10.3); Carbon Dioxide 28 mEq/L (23-29); Chloride 101 mEq/L (98-107); Glucose 181 mg/dL (70-105); Osmolality,Calculated 293 (280-300); Potassium 4.1 mEq/L (3.5-5.1); Sodium 137 mEq/L (136-145); eGFR For Non-African Americans 51 (> 60)
[2018-04-12 10:54] VITALS: BP 121/90
--- NOTE | 2018-04-12 12:15 | Cardiology Progress Note ---
Date of Encounter: 04/12/18 Time of Encounter: 12:15 Assessment and Plan (1) Atrial fibrillation Current Visit: Yes Status: Acute Per Cardiology: Previous records reviewed, Presents with atrial fibrillation with RVR. Pt states he did not take his medication due to low blood pressure. TTE completed 12/2017- EF 50%. No significant valve disease. TSH normal 12/2017. Currently sinus rhythm in the 70s. On beta law. Currently on heparin IV gtt., patient offered left heart catheterization for elevated troponins, cardiomyopathy and previous stenting in 2004; patient declined staying during hospital stay electrical home today. We will start long-term anticoagulation of Eliquis 5mg PO BID. Qualifiers: Atrial fibrillation type: unspecified Qualified Code(s): I48.91 - Unspecified atrial fibrillation (2) Elevated troponin Current Visit: Yes Status: Acute Per Cardiology: Mild troponin elevation 0.06, 0.07, 0.09. Not diagnostic for ACS in the setting of hypoxia, hypotension RITA, and sepsis. EKG -atrial fibrillation with RVR. LBBB. Recommend stress test with known CAD and recent recurrent afib with RVR. Patient unable to tolerate stress test today with difficulty laying flat on camera. Due to EF now showing 40-45% and mild troponin elevations we discussed potential left heart catheterization. However, patient desires to go home today in follow-up in outpatient setting to evaluate. Of note listed IVP dye al lergy-- however patient cannot provide exact details with allergy is. Chest pain-free. On aspirin, statin, beta law. Cardiology will sign off, reconsult as needed, follow-up arranged in outpatient setting and can consider catheterization at that time. Discussion w patient/family: The assessment and plan as outlined above was discussed with the patient and/or family members who expressed understanding and agreement. All questions were answered. Thank you for involving us in the care of your patient. Please call with any questions. Subjective Principal diagnosis: Afib Interval history: Patient denies any chest pain, short of breath, palpitations. Reports inability to lay flat for stress test due to back pain. Objective Vital Signs, Last 4 Hours Temp Pulse Resp BP Pulse Ox 04/12/18 10:50 98.2 F 83 20 121/90 98 General: Conversant, No Apparent Distress HEENT: Atraumatic, Normocephaly, Mucus Membranes Moist Neck: No JVD, Normal carotid pulses Cardiac: Normal S1 and S2, No Murmur, Other (Irregularly irregular) Lungs: Normal Breath Sounds, No Wheeze, Rales, Rhonchi Neuro: Alert and responsive, No focal deficits noted Abdomen: Soft, Non-Tender Skin: No rashes noted on visualized skin Musculoskeletal: No Chest Wall Tenderness Extremities: No Clubbing, No Cyanosis, No Edema, Normal Pulses Results 04/11/18 06:47 04/12/18 08:55 Lab Results Laboratory Tests 04/10/18 04/10/18 04/10/18 18:48 18:48 20:43 INR D-Dimer 436 Creatinine 2.02 H Est GFR (Non-Af Amer) 32 L Troponin I 0.07 H* B-Natriuretic Peptide 210 H 04/11/18 04/11/18 04/11/18 00:57 06:47 06:47 INR 1.1 D-Dimer Creatinine Est GFR (Non-Af Amer) Troponin I 0.06 H* 0.08 H* B-Natriuretic Peptide 04/12/18 08:55 INR D-Dimer Creatinine 1.36 H Est GFR (Non-Af Amer) 51 L Troponin I B-Natriuretic Peptide ITS Impressions Chest X-Ray 04/10/18 18:38 IMPRESSION: Mild pulmonary vascular congestion. Low lung volumes. Stable mild cardiomegaly. D/ / Matt Rivera MD / Matt Rivera MD Interpreting Provider: aMtt Rivera MD Foot X-Ray 04/10/18 18:55 IMPRESSION: No acute osseous abnormality. D/ / Kwaku Palmer MD / Kwaku Palmer MD Interpreting Provider: Kwaku Palmer MD Echocardiogram 04/11/18 09:09 Impressions: LVEF 40-45%. Mild global left ventricular systolic dysfunction. Moderate diastolic dysfunction. Normal right ventricular structure and function. Mildly dilated left atrium. Mild mitral regurgitation. Active Medications Aspirin (Aspirin Ec) 81 mg PO DAILY [facility] Stop: 10/11/18 09:01 Last Admin: 04/12/18 09:05 Dose: 81 mg Atenolol (Tenormin) 25 mg PO DAILY [facility] Stop: 10/12/18 09:01 Last Admin: 04/12/18 09:06 Dose: 25 mg Atorvastatin Calcium (Lipitor) 10 mg PO DAILY [facility] Stop: 10/11/18 09:01 Last Admin: 04/12/18 09:05 Dose: 10 mg Collagenase (Santyl) 1 appl TP DAILY [facility]; Protocol Stop: 10/11/18 09:01 Last Admin: 04/12/18 09:06 Dose: 1 appl Dextrose/Water (Dextrose 50% (Syg)) 25 ml IVP AD PRN PRN Reason: Hypoglycemia Stop: 10/11/18 03:03 Furosemide (Lasix) 20 mg IVP DAILY [facility] Stop: 10/11/18 09:01 Last Admin: 04/12/18 09:05 Dose: 20 mg Gabapentin (Neurontin) 600 mg PO TID [facility] Stop: 10/11/18 09:01 Last Admin: 04/12/18 09:05 Dose: 600 mg Glucagon (Glucagen) 1 mg IM ONCE PRN PRN Reason: Hypoglycemia Stop: 10/11/18 03:03 Glucose (Gluctose) 15 gm PO ONCE PRN PRN Reason: Hypoglycemia Stop: 10/11/18 03:03 Glucose (Gluctose) 30 gm PO ONCE PRN PRN Reason: Hypoglycemia Stop: 10/11/18 03:03 Heparin Sodium (Porcine) (Heparin) 7,000 unit 70 unit/kg (7000 unit) IVP Q6HR PRN PRN Reason: SEE COMMENTS Stop: 10/11/18 04:05 Heparin Sodium (Porcine) (Heparin) 3,500 unit 35 unit/kg (3500 unit) IVP Q6H PRN PRN Reason: SEE COMMENTS Stop: 10/11/18 04:05 Dextrose (Dextrose 5%) 1,000 mls @ 100 mls/hr IVC .Q10H PRN PRN Reason: HYPOGLYCEMIA Stop: 10/11/18 03:03 Heparin Sodium/Dextrose (Heparin 25,000 Unit/500 Ml D5w) 25,000 unit in 500 mls @ 28.14 mls/hr IVC .[id number] [facility]; Protocol Stop: 10/11/18 04:16 Last Admin: 04/11/18 22:40 Dose: 14 unit/kg/hr, 28.14 mls/hr Piperacillin Sod/Tazobactam (Sod 3.375 gm/ Sodium Chloride) 100 mls @ 25 mls/hr IVPB Q8H [facility] Stop: 10/11/18 05:01 Last Admin: 04/12/18 04:43 Dose: 25 mls/hr Vancomycin HCl 1,250 mg/ (Sodium Chloride) 250 mls @ 166.67 mls/hr IVPB Q24H [facility] Stop: 10/11/18 19:01 Last Infusion: 04/11/18 20:48 Dose: Infused Insulin Detemir (Levemir) 20 unit SQ HS [facility] Stop: 10/11/18 21:01 Last Admin: 04/11/18 20:50 Dose: 20 unit Insulin Human Lispro (Humalog) 0 units SQ TIDAC [facility]; Protocol Stop: 10/11/18 07:31 Last Admin: 04/12/18 09:04 Dose: 4 units Insulin Human Lispro (Humalog) 0 units SQ HS [facility]; Protocol Stop: 10/11/18 23:01 Last Admin: 04/11/18 23:05 Dose: 3 units Naloxone HCl (Narcan) 0.4 mg IVP Q2MIN PRN PRN Reason: SEE COMMENTS Stop: 10/10/18 21:45 - Imaging and Cardiology Stress Test: pending Cardiac cath: pending Consult Discharge Plan - Plan Referrals: Ariel Munson DO [Primary Care Provider] - Prescriptions: Apixaban [Eliquis] 5 mg PO BID #60 tablet
[2018-04-12] MEDS ORDERED: Apixaban 5 MG TABLET PO SCH (12:45)
--- NOTE | 2018-04-12 13:27 | Discharge Summary ---
Orders not resulted at time of discharge: Pending orders 04/10/18 18:48 Culture,Blood [BC] Stat 04/10/18 21:29 Urinalysis Reflex Cult & Micro [URIN] Stat 04/11/18 04:00 Complete Blood Count [HEME] AM 0400 04/12/18 18:52 Heparin anti-factor XA UFH [COAG] Timed Date of Encounter: 04/12/18 Time of Encounter: 13:00 - Discharge Diagnosis (1) Systolic and diastolic CHF, acute Priority: Primary Status: Acute Assessment and Plan: 72 year old male with a past medical history of diabetes, atrial fibrillation, chronic kidney disease, coronary artery disease, syncopal episodes and peripheral vascular disease who was referred by his PCP after patient was found to have a O2 saturation and this low 70s. Patient states that he was otherwise feeling fine with no complaints of chest pain or shortness of breath. Patient states he has been having low blood pressure as well over the past several weeks and has not taken one of his antihypertensives but he is not sure which. Patient also has a 2 cm ulcer on the dorsum of the left foot which he states occurred due to rubbing of the strap of his sandals against that area of his skin He was assessed with acute hypoxic respiratory failure likely secondary to afib with RVR and acute systolic and diastolic CHF. Last echo showed EF of 50-55% and repeat echo on this admission showed EF 40-45% with hypokinetic weiss. He was started on diuresis with improvement in his symptoms. His heart rate was also controlled with beta blockers. He was seen by cardiology who recommended nuclear stress test. He declined nuclear stress test because he can't lie flat due to back pain. He was then recommended to get a left heart cath which he declines at this time. Risks and benefits were explained to him. He will follow up with cardiology outpatient. His shortness of breath and hypotension had resolved on discharge. He was discharged on eliquis For his ulcer, he got wound dressing and was on vanc and zosyn in the hospital. He will complete a course of augmentin at home (2) Atrial fibrillation Priority: Primary Status: Acute Qualifiers: Atrial fibrillation type: unspecified Qualified Code(s): I48.91 - Unspecified atrial fibrillation (3) CAD (coronary artery disease) Priority: Primary Status: Chronic Qualifiers: Coronary Disease-Associated Artery/Lesion type: [place] artery [place] vs. transplanted heart: [place] heart Associated angina: without angina Qualified Code(s): I25.10 - Atherosclerotic heart disease of [place] coronary artery w ithout angina pectoris (4) Diabetes mellitus with peripheral vascular disease Priority: Primary Status: Chronic (5) Hypotension Priority: Primary Status: Acute Qualifiers: Hypotension type: unspecified hypotension type Qualified Code(s): I95.9 - Hypotension, unspecified (6) Elevated troponin Priority: Primary Status: Acute (7) Foot ulcer, left Priority: Primary Status: Acute Qualifiers: Non-pressure ulcer stage: unspecified non-pressure ulcer stage Qualified Code(s): L97.529 - Non-pressure chronic ulcer of other part of left foot with unspecified severity (8) Hypoxemia Priority: Primary Status: Acute (9) Wqxtq-er-ohwmwva kidney injury Priority: Primary Status: Acute Qualifiers: Qualified Code(s): N17.9 - Acute kidney failure, unspecified; N18.9 - Chronic kidney disease, unspecified (10) Lactic acidosis Priority: Primary Status: Acute Hospital course: Mr. Ayala is a 72 year old male - Time Spent with Patient Total time spent providing and/or coordinating discharge services: - Discharge Medications Prescriptions: Amoxicillin/Clavulanate [Augmentin] 875 mg PO BIDWM 5 Days #10 tablet Apixaban [Eliquis] 5 mg PO BID #60 tablet Atenolol [Tenormin] 25 mg PO DAILY 30 Days #30 tablet Furosemide [Lasix] 20 mg PO DAILY 30 Days #30 tablet Home Medications: Aspirin [Lo-Dose Aspirin EC] 81 mg PO DAILY 12/22/17 [History] Gabapentin [Neurontin] 600 mg PO TID 12/22/17 [History] Glimepiride [Amaryl] 2 mg PO DAILY 12/22/17 [History] HYDROcodone/Acet 7.5/325 mg [[place] 7.5-325 mg] 1 tab PO TID PRN 12/22/17 [History] Insulin Lispro Protamin/Lispro [Humalog Mix 75-25 Kwikpen] 70 unit SQ BID 12/22/17 [History] Lisinopril-HCTZ 20-12.5 [Prinzide 20-12.5] 1 tab PO DAILY 12/22/17 [History] Lovastatin 40 mg PO DAILY 12/22/17 [History] Pioglitazone HCl [Actos] 30 mg PO DAILY 12/22/17 [History] Terbinafine HCl 250 mg PO DAILY 12/22/17 [History] Collagenase Oint [Santyl] 1 appl TP DAILY 04/10/18 [History] Apixaban [Eliquis] 5 mg PO BID #60 tablet 04/11/18 [Rx] Amoxicillin/Clavulanate [Augmentin] 875 mg PO BIDWM 5 Days #10 tablet 04/12/18 [Rx] Atenolol [Tenormin] 25 mg PO DAILY 30 Days #30 tablet 04/12/18 [Rx] Furosemide [Lasix] 20 mg PO DAILY 30 Days #30 tablet 04/12/18 [Rx] Allergies/Adverse Reactions: Allergy/AdvReac Type Severity Reaction Status Date / Time Iodinated Contrast- Oral and Allergy Dizziness Verified 08/15/17 09:18 IV Dye Date of admission: 04/10/18 21:24 Primary care physician: Ariel Munson DO Consults: 04/10/18 23:27 Consult to Grounds Cleaner [CONS] Routine Reason for SW Consult: Patient wants information on POA and living will. 04/11/18 04:16 Consult to Wound Care [CONS] Routine Reason for Consult: 2 x 2 centimeter ulceration on the dorsum of the left foot in the setting of peripheral vascular disease and diabetes Call Completed: No 04/11/18 08:53 Consult to Cardiology [CONS] Routine Comment: Consulting Provider: Cardiology Luisana Reason for Consult: afib with newly elevated troponins Call Completed: No - Constitutional Vitals: Temp Pulse Resp BP Pulse Ox 98.2 F 83 20 121/90 98 04/12/18 10:50 04/12/18 10:50 04/12/18 10:50 04/12/18 10:50 04/12/18 10:50 Exam: General: Alert and oriented 3; lying in bed in no acute distress Skin:Normal color, no rash, 2 x 2 centimeter lesion on the dorsum of the left foot with. Mild purulent drainage. HEENT:EOM, pupils equal, round and reactive. Cardiovascular:Normal S1 & S2, no rubs, murmurs or gallops. No JVD. Pulse irregularly irregular. Lungs:Normal breath sounds, no wheezes or crackles. Abdomen:Soft, non-tender, no rigidity. Extremities:No deformity, no edema or tenderness, no joint swelling or clubbing. Neurological:Normal cognition and motor skills. Pulses:Carotid and radial pulses normal +2. Rest of the physical exam is non contributory - Patient Status Disposition: Home, Self-Care Condition: Good - Discharge Instructions Instructions: Atenolol (By mouth), Furosemide (By mouth), Amoxicillin/Clavulanate Potassium (By mouth), Apixaban (By mouth), Atrial Fibrillation (DC), Atrial Fibrillation (GEN), Sepsis (DC), Sepsis (GEN) Follow Up With: Ariel Munson DO [Primary Care Provider] - 05/15/18 1:15 pm
--- NOTE | 2018-04-12 23:14 | Electrocardiograph Report ---
[place] [id number] Test Date: 2018-04-10 Pat Name: Eduardo Ayala Department: EXAM11 Room: 2NE23 Gender: M Carroter: : 1945 Requested By: Mark Van Order Number: [id number] Reading MD: Christian Bhatti Measurements Intervals [place] Rate: 131 P: 0 [place]: 132 QRS: 2 QRSD: 130 T: 153 QT: 359 QTc: 554 Interpretive Statements Atrial fibrillation with rapid ventricular response Left bundle branch block Electronically Signed On 04-12-2018 23:12:39 EDT by Christian Bhatti
--- NOTE | 2018-04-15 13:49 | Electrocardiograph Report ---
[place] [id number] Test Date: 2018-04-11 Pat Name: Eduardo Ayala Department: 111 Room: [facility] Gender: M [employer] [place] Assembler: : 1945 Requested By: Falguni Davis Order Number: [id number] Reading MD: Rigoberto Adan Measurements Intervals [place] Rate: 129 P: [place]: 0 QRS: 12 QRSD: 128 T: 168 QT: 335 QTc: 411 Interpretive Statements ATRIAL FIBRILLATION WITH RAPID VENTRICULAR RESPONSE LEFT BUNDLE BRANCH BLOCK Electronically Signed On 04-15-2018 13:47:00 EDT by Rigoberto Adan
== END 2018-04-12 17:13 | disposition home or self-care (01) ==
LOC: 2NENU 18:20 → EMEROOARM 18:20 → SUATTDRO 21:24 → 2NENU 22:52
PROVIDERS: ADMIT Internal Medicine; ATTEND Student in an Organized Health Care Education/Training Program